=== PATIENT | female | born 1945 | race Hispanic/Latino ===

== ENCOUNTER 2018-05-05 15:20 | Inpatient (IN) | payer MEDICARE ==
[2018-05-05 15:21] VITALS: BMI 16.5
[2018-05-05] MEDS ORDERED: Sodium Chloride 0.9% 500 ML IV ONE ×2 (16:24→17:56)
[2018-05-05 16:40] LABS: BASO % 0.3 % (0.0-2.0); HEMOGLOBIN 7.7 g/dL (11.0-16.0); LYMPH # 0.4 K/uL (1.0-4.3); LYMPH % 2.8 % (20.0-40.0); MEAN CELL VOLUME 102.5 fL (81.0-99.0); MEAN CORPUSCULAR HEMOGLOBIN 32.8 pg (27.0-31.0); MEAN PLATELET VOLUME 8.8 fL (7.2-11.7); MONO # 0.6 K/uL (0.0-0.8); MONO % 3.9 % (0.0-10.0); NEUT # 14.8 K/uL (1.8-7.0); NRBC % 0.1 % (0.0-2.0); PLATELET COUNT 115 K/uL (130-400); RBC 2.35 Mil/uL (3.80-5.20); RED CELL DISTRIBUTION WIDTH 15.9 % (11.5-14.5)
[2018-05-05 16:50] LABS: INR 1.6
[2018-05-05 17:01] LABS: ALB/GLOB RATIO 1.2 (1.0-2.1); ALBUMIN 3.5 g/dL (3.5-5.0); CALCIUM 8.5 mg/dl (8.6-10.4)
[2018-05-05 17:13] LABS: CK-MB 9.59 ng/mL (0.0-3.38); TROPONIN I 0.013 ng/mL (0.00-0.120)
[2018-05-05] MEDS ORDERED: Sodium Chloride 0.9% 1,000 ML ONE (17:16)
--- NOTE | 2018-05-05 17:18 | C.PDOC ---
History Of Present Illness 72yo female with history of metastatic lung cancer (with mets to her brain), currently on chemotherapy, sent to ER by her oncologist Dr. Rizo for evaluation of generalized weakness for the last several days. Patient's outpatient bloodwork showed hemoglobin on 7.7; patient states she has had 2 prior blood transfusions. She reports mild shortness of breath but denies any abdominal pain, chest pain, nausea, vomiting, diarrhea, fever. PMD: Caryn Costello S Time Seen by Provider: 05/05/18 15:55 Chief Complaint (Nursing): Medical Clearance History Per: Patient History/Exam Limitations: no limitations Current Symptoms Are (Timing): Still Present Severity: Moderate Additional History Per: Patient Past Medical History Reviewed: Historical Data, Nursing Documentation, Vital Signs Vital Signs: Last Vital Signs Temp 97.4 F L 05/09/18 15:31 Pulse 110 H 05/09/18 15:31 Resp 20 05/09/18 15:31 BP 100/66 05/09/18 15:31 Pulse Ox 99 05/09/18 15:31 - Medical History PMH: Anxiety, Arthritis, Depression, Fractures (HAND NO SURGERY AGE 22), Hypercholesterolemia, Hypothyroidism, Osteoporosis, Pneumonia (A LONG TIME AGO) Surgical History: No Surg Hx - [facility] Procedures CYSTOSCOPY NEC (02/15/14) ENDOSC POLYPECTOMY OF LG INTEST (05/24/14) ESOPHAGOGASTRODUODENOSCOPY [EGD] W/CLOSED BIOPSY (05/24/14) GYNECOLOGIC EXAMINATION (02/15/14) RETROGRADE PYELOGRAM (02/15/14) TU DESTRUC BLADD LES NEC (02/15/14) Family History: States: No Known Family Hx - Social History Hx Tobacco Use: Yes Hx Alcohol Use: No Hx Substance Use: No - Immunization History Hx Tetanus Toxoid Vaccination: No Hx Influenza Vaccination: No Hx Pneumococcal Vaccination: No Review Of Systems Constitutional: Positive for: Weakness. Negative for: Fever, Chills Cardiovascular: Negative for: Chest Pain, Palpitations Respiratory: Positive for: Shortness of Breath. Negative for: Cough Gastrointestinal: Negative for: Nausea, Vomiting, Abdominal Pain Skin: Negative for: Rash Physical Exam - Physical Exam Appears: Non-toxic, Chronically Ill, Other (fatigued appearing ) Skin: Warm, Dry, Pale Head: Normacephalic Eye(s): bilateral: Normal Inspection Oral Mucosa: Moist Neck: Supple Chest: Other (portacath noted to right upper chest) Cardiovascular: Rhythm Regular Respiratory: Normal Breath Sounds, No Rales, No Rhonchi, No Wheezing Gastrointestinal/Abdominal: Soft, Tenderness (mild right sided periumbilical abdominal tenderness), No Mass, No Guarding, No Rebound Rectal: Rectal Tone (Normal), No Blood Streaked Stool, Hemorrhoids (small external hemorrhoids), No Mass, No Tenderness Back: Normal Inspection Extremity: Normal ROM, No Deformity Neurological/Psych: Oriented x3 ED Course And Treatment - Laboratory Results Result Diagrams: 05/09/18 07:48 05/09/18 07:48 ECG: Interpreted By Me, Viewed By Me (NSR 87 bpm, normal axis, Q wave aVL, V2, no acute ST/T wave changes) O2 Sat by Pulse Oximetry: 100 (RA) Pulse Ox Interpretation: Normal - Radiology CXR: Interpreted by Me, Viewed By Me CXR Interpretation: Yes: No Acute Disease, Other (left sided lung mass, no infiltrates/effusions) - CT Scan/US RUQ US Other Rad Studies (CT/US): Read By Radiologist, Radiology Report Reviewed CT/US Interpretation: This report is currently processing and HAS NOT BEEN OFFICIALLY SIGNED BY THE PHYSICIAN - ESTIMATED TIME OF APPROVAL IS 05/05/2018 18 :57. HISTORY: RUQ PAIN, ELEVATED LIVER ENZYMES, COLON CA. COMPARISON: Correlation made with MRI of the abdomen 09/21/2014 as well as prior CT scan of the abdomen and pelvis dated 07/26/2014. The. TECHNIQUE: Sonographic evaluation of the right upper quadrant of the abdomen. FINDINGS: LIVER: . The liver is mildly liver is borderline enlarged measuring approximately 18.2 cm in length. Liver demonstrates nodular contour and increased echotexture. There are multiple hepatic masses present, with the largest in the right lobe measuring approximately. 9.9 cm. Midline mass measures approximately 3.9 cm in greatest dimension. Recommend followup CT scan of the abdomen and pelvis to assess for metastasis given the patient's history of colon carcinoma. . GALLBLADDER: Gallbladder is physiologically distended. No evidence of intraluminal gallbladder calculi. . No evidence of sonographic [place] sign of Radiology connects. COMMON BILE DUCT: Common bile duct is mildly dilated measuring 1.1 cm. Mm. No stones. No dilatation. PANCREAS: Pancreas not visualized due to body habitus and bowel gas. RIGHT KIDNEY: Measures 9.1 x 4.0 x 5.4 cm cm in length. Normal echogenicity. No calculus, mass, or hydronephrosis. AORTA: No aneurysmal dilatation. IVC: Unremarkable. OTHER FINDINGS: None . IMPRESSION: There are at least 2 heterogeneous masses in the mid liver likely representing metastatic disease. Recommend followup CT scan of the abdomen pelvis. Note that these findings were discussed with lines are 6:51 p.m. with written down and read back verification. Progress Note: Blood work, UA, CXR ordered and reviewed. Patient given IV NS bolus, PO Perocet. Hgb 7.7, blood transfusion recommended by Dr. Ruby - ordered and given. Blood work also showed elevated liver enzymes - in light of metastatic lung CA history, US of RUQ prdered to eval for possible liver mets. - Physician Consult Information Physician Contacted: Ayan Eric Outcome Of Conversation: Discussed patient with hospitalist, agrees with admission for symptomatic anemia, generalized weakness, dyspnea, elevated LFTs, metastatic lung cancer. Disposition - Disposition Disposition: HOSPITALIZED Disposition Time: 18:07 Condition: STABLE - Clinical Impression Clinical Impression: Symptomatic anemia, Generalized weakness, LFTs abnormal, Metastatic lung carcinoma, Dyspnea - Scribe Statement The provider has reviewed the documentation as recorded by the Scribe (Ambar Caruso) Provider Attestation: All medical record entries made by the Scribe were at my direction and personally dictated by me. I have reviewed the chart and agree that the record accurately reflects my personal performance of the history, physical exam, medical decision making, and the department course for this patient. I have also personally directed, reviewed, and agree with the discharge instructions and disposition. Decision To Admit - Pt Status Changed To: Hospital Disposition Of: Inpatient - Admit Certification Admit to Inpatient:: After my assessment, the patient will require hospitalization for at least two midnights. This is because of the severity of symptoms shown, intensity of services needed, and/or the medical risk in this patient being treated as an outpatient. - InPatient: Physician Admission Certification: I certify that this patient requires 2 or more midnights of care for the following reason:: see notes - . Bed Request Type: Regular Admitting Physician: Ayan Eric Patient Diagnosis: Symptomatic anemia, Generalized weakness, LFTs abnormal, Metastatic lung carcinoma, Dyspnea
[2018-05-05] MEDS ORDERED: Oxycodone/Acetaminophen 5/325 mg Tab PO STA (17:57)
[2018-05-05 18:10] LABS: BANDS 2 % (0-2); LYMPHOCYTE 3 % (20-40); MONOCYTE 3 % (0-10); NEUTROPHIL 92 % (50-75); NUCLEATED RED BLOOD CELL 1 % (0-0); TOTAL CELLS COUNTED 100
[2018-05-05 18:11] LABS: PLATELET ESTIMATE SLIGHTLY DECREASED (NORMAL)
[2018-05-05] MEDS ORDERED: Oxycodone/Acetaminophen 5/325 mg Tab ONE (18:34)
[2018-05-05] MEDS ORDERED: oxyCODONE 10 mg Immediate Release Tab PO PRN (18:50)
--- NOTE | 2018-05-05 18:52 | US ---
HISTORY: RUQ PAIN, ELEVATED LIVER ENZYMES, COLON CA COMPARISON: Correlation made with MRI of the abdomen 09/21/2014 as well as prior CT scan of the abdomen and pelvis dated 07/26/2014. The TECHNIQUE: Sonographic evaluation of the right upper quadrant of the abdomen. FINDINGS: LIVER: . The liver is mildly liver is borderline enlarged measuring approximately 18.2 cm in length. Liver demonstrates nodular contour and increased echotexture. There are multiple hepatic masses present, with the largest in the right lobe measuring approximately. 9.9 cm. Midline mass measures approximately 3.9 cm in greatest dimension. Recommend followup CT scan of the abdomen and pelvis to assess for metastasis given the patient's history of colon carcinoma. GALLBLADDER: Gallbladder is physiologically distended. No evidence of intraluminal gallbladder calculi. . No evidence of sonographic Cedillo sign of Radiology connects COMMON BILE DUCT: Common bile duct is mildly dilated measuring 1.1 cm. Mm. No stones. No dilatation. PANCREAS: Pancreas not visualized due to body habitus and bowel gas RIGHT KIDNEY: Measures 9.1 x 4.0 x 5.4 cm cm in length. Normal echogenicity. No calculus, mass, or hydronephrosis. AORTA: No aneurysmal dilatation. IVC: Unremarkable. OTHER FINDINGS: None . IMPRESSION: There are at least 2 heterogeneous masses in the mid liver likely representing metastatic disease. Recommend followup CT scan of the abdomen pelvis. Note that these findings were discussed with lines are 6:51 p.m. with written down and read back verification.
[2018-05-05] MEDS ORDERED: HYDROmorphone 1 mg/ml ISec IVP PRN (19:12)
[2018-05-05] MEDS: Lactated Ringer's 1,000 ML IV SCH (19:16)
--- NOTE | 2018-05-05 19:30 | CP.PCM.HP ---
History of Present Illness - History of Present Illness History of Present Illness: This is 72 years old female with history of metastatic lung cancer,anxiety, depression and hypothyroidism was sent by her oncologist Dr michaels for severe anemia symptomatic anemia. 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 Patient was weak and not eating and not doing well last few weeks. patient 's is having hard time in taking care of her at home. Patient wants to continue treatment and not want palliative care. Her leukocytosis is likely due to Decardron she was taking. Patient denies fever,no nausea,no vomiting,no diarrhea. patient has right hypochondria pain last 3 weeks. She states that her pain is due to liver mass and her right lung cancer. She had Radiation for brain mets and s/p chemo. She completed her radiation about two weeks ago PMH -Metatatic lung cancer Anxiety, Arthritis, Depression, Fractures (HAND NO SURGERY AGE 22), Hypercholesterolemia, Hypothyroidism, Osteoporosis, Pneumonia Social history-Former smoker,denies drug and alcohol use Allergies Penicillin and other antibiotics she doesn't remember Present on Admission - Present on Admission Any Indicators Present on Admission: No History of DVT/PE: No History of Uncontrolled Diabetes: No Urinary Catheter: No Decubitus Ulcer Present: No Review of Systems - Constitutional Constitutional: Anorexia, Weight Loss. absent: Chills, Fever, Malaise - EENT Eyes: absent: Change in Vision Nose/Mouth/Throat: absent: Nasal Congestion - Breasts Breasts: absent: Skin Changes - Cardiovascular Cardiovascular: absent: Chest Pain, Edema - Respiratory Respiratory: Dyspnea on Exertion. absent: Cough, Dyspnea, Chest Congestion - Gastrointestinal Gastrointestinal: Abdominal Pain. absent: Cramping, Diarrhea, Dysphagia, Early Satiety, Melena, Vomiting - Genitourinary Genitourinary: absent: Change in Urinary Stream, Difficulty Urinating - Reproductive: Female Reproductive:Female: Post Menopausal - Musculoskeletal Musculoskeletal: Abnormal Gait, Back Pain, Muscle Weakness. absent: Neck Pain, Numbness, Radiating Pain into Limb - Neurological Neurological: Weakness. absent: Abnormal Hearing, Confusion, Focal Weakness, Frequent Falls, Headaches, Paresthesias, Radicular Pain, Sensory Deficit, Syncope, Vertigo - Psychiatric Psychiatric: Anxiety. absent: Confusion, Depression, Homicidal Ideation, Hopelessness, Irritability, Memory Loss, Mood Swings, Visual Hallucinations - Endocrine Endocrine: Fatigue - Hematologic/Lymphatic Hematologic: absent: Easy Bruising Past Patient History - Past Medical History & Family History Past Medical History?: Yes - Past Social History Smoking Status: Heavy Smoker > 10 Cigarettes Daily - CARDIAC Hx Hypercholesterolemia: Yes - PULMONARY Hx Pneumonia: Yes (A LONG TIME AGO) - NEUROLOGICAL Hx Neurological Disorder: No - HEENT Hx HEENT Problems: No - ENDOCRINE/METABOLIC Hx Hypothyroidism: Yes - HEMATOLOGICAL/ONCOLOGICAL Hx Blood Disorders: Yes Hx Cancer: Yes (LIVER) - INTEGUMENTARY Hx Dermatological Problems: No - MUSCULOSKELETAL/RHEUMATOLOGICAL Hx Arthritis: Yes Hx Fractures: Yes (HAND NO SURGERY AGE 22) Hx Osteoporosis: Yes - GASTROINTESTINAL Hx Gastrointestinal Disorders: No - GENITOURINARY/GYNECOLOGICAL Hx Genitourinary Disorders: Yes Hx Urinary Tract Infection: Yes (HX UTI) - PSYCHIATRIC Hx Anxiety: Yes Hx Depression: Yes Hx Substance Use: No - SURGICAL HISTORY Hx Surgeries: Yes Hx Hysterectomy: Yes Hx Thyroidectomy: Yes (PARTIAL THYROIDECTOMY) - ANESTHESIA Hx Anesthesia: Yes Hx Anesthesia Reactions: No Hx Malignant Hyperthermia: No Meds Allergies/Adverse Reactions: Allergies Allergy/AdvReac Type Severity Reaction Status Date / Time adhesive tape Allergy Severe RASH Verified 05/05/18 15:32 lidocaine Allergy Severe RASH Verified 05/05/18 15:32 nitrofurantoin Allergy Severe SHORTNESS Verified 05/05/18 15:32 [From Macrobid] OF BREATH nitrofurantoin Allergy Severe SHORTNESS Verified 05/05/18 15:32 macrocrystalline OF BREATH [From Macrobid] ciprofloxacin [From Cipro] AdvReac Severe VOMITING Verified 05/05/18 15:32 ciprofloxacin HCl AdvReac Severe VOMITING Verified 05/05/18 15:32 [From Cipro] Penicillins AdvReac Severe VOMITING Verified 05/05/18 15:32 Sulfa (Sulfonamide AdvReac Severe VOMITING Verified 05/05/18 15:32 Antibiotics) Physical Exam - Constitutional Appears: No Acute Distress, Cachectic - Head Exam Head Exam: NORMAL INSPECTION - Eye Exam Eye Exam: Normal appearance - ENT Exam ENT Exam: Mucous Membranes Moist - Neck Exam Neck exam: Positive for: Full Rom - Respiratory Exam Respiratory Exam: Clear to Auscultation Bilateral, NORMAL BREATHING PATTERN - Cardiovascular Exam Cardiovascular Exam: REGULAR RHYTHM - GI/Abdominal Exam GI & Abdominal Exam: Normal Bowel Sounds, Soft, Tenderness (right hypochondrial pain). absent: Distended, Guarding Results - Vital Signs Recent Vital Signs: Last Vital Signs Temp 98 F 05/05/18 18:27 Pulse 90 05/05/18 18:27 Resp 98 H 05/05/18 19:00 BP 123/73 05/05/18 19:00 Pulse Ox 98 05/05/18 19:00 - Labs Result Diagrams: 05/09/18 07:48 05/09/18 07:48 Labs: Laboratory Results - last 24 hr 05/05/18 05/05/18 05/05/18 16:35 16:35 16:35 WBC 16.0 H D RBC 2.35 L Hgb 7.7 L D Hct 24.1 L MCV 102.5 H D MCH 32.8 H MCHC 32.0 L RDW 15.9 H Plt Count 115 L D MPV 8.8 Neut % (Auto) 93.0 H Lymph % (Auto) 2.8 L [place] % (Auto) 3.9 Eos % (Auto) 0.0 Baso % (Auto) 0.3 Neut # (Auto) 14.8 H Lymph # (Auto) 0.4 L [place] # (Auto) 0.6 Eos # (Auto) 0.0 Baso # (Auto) 0.0 Neutrophils % (Manual) 92 H Band Neutrophils % 2 Lymphocytes % (Manual) 3 L Monocytes % (Manual) 3 Nucleated RBC % 1 H Platelet Estimate Slightly decreased L PT 17.0 H INR 1.6 APTT 25 Sodium 136 Potassium 4.4 Chloride 100 Carbon Dioxide 19 L Anion Gap 21 H BUN 48 H Creatinine 2.3 H Est GFR ( Amer) 25 Est GFR (Non-Af Amer) 21 Random Glucose 91 Calcium 8.5 L Total Bilirubin 0.9 AST 183 H ALT 152 H D Alkaline Phosphatase 456 H Total Creatine Kinase 162 H CK-MB (Mass) 9.59 H Troponin I 0.0130 Total Protein 6.5 Albumin 3.5 D Globulin 3.0 Albumin/Globulin Ratio 1.2 Stool Occult Blood Blood Type Antibody Screen 05/05/18 05/05/18 16:35 17:49 WBC RBC Hgb Hct MCV MCH MCHC RDW Plt Count MPV Neut % (Auto) Lymph % (Auto) [place] % (Auto) Eos % (Auto) Baso % (Auto) Neut # (Auto) Lymph # (Auto) [place] # (Auto) Eos # (Auto) Baso # (Auto) Neutrophils % (Manual) Band Neutrophils % Lymphocytes % (Manual) Monocytes % (Manual) Nucleated RBC % Platelet Estimate PT INR APTT Sodium Potassium Chloride Carbon Dioxide Anion Gap BUN Creatinine Est GFR ( Amer) Est GFR (Non-Af Amer) Random Glucose Calcium Total Bilirubin AST ALT Alkaline Phosphatase Total Creatine Kinase CK-MB (Mass) Troponin I Total Protein Albumin Globulin Albumin/Globulin Ratio Stool Occult Blood Negative Blood Type O NEGATIVE Antibody Screen Negative Assessment & Plan - Assessment and Plan (Free Text) Assessment: 72 years old female with metastatic lung cancer brought in for symptomatic anemia. has mets to brain,liver and bones. s/p chemo and brain radiation treatment. She wants full treatment including resuscitation if needed. patient is weak and poor intake. She is anemic HB 7.7,She has creatinine 2.3 and high LFT. As per Dr Michaels her creatinine and LFT were normal Plan: 1.Symptomatic anemia- transfuse PRBC stool ob negative-no GI bleeding likely due to ca with mets 2.Acute renal failure As per pt she has poor appetite and not able to drink start zofran IV Fluids monitor creatinine If no improvement we will get CT abdomen to r/o obstruction 3.Elevated LFT folloe US 4.Lung ca with mets Poor prognosis d/w Patient's oncologist-no plan for further treatment Patient refuses hospice care ' full code 5.Anxiety and pain xanax and pain mets 6.Leukocytosis No signs of infection,do UA May be due to dexamethasone she was getting d/w oncologist we will not start on antibiotics now 7.DVT and GI prophylaxis Attending/Attestation - Attestation I have personally seen and examined this patient.: Yes I have fully participated in the care of the patient.: Yes I have reviewed all pertinent clinical information: Yes Notes (Text): This is 72 years old female with history of metastatic lung ca came for symptomatic anemia. Discussed with her oncologist Dr Michaels Patient has extensive mets and she was not doing good at home.Poor appetite, weakness and period of confusion.Her LFT and creatinine were normal at her office.Her prognosis is not good. No plan for further treatment. On examination frail female c/o pain and weakness. On admission she wass not interested inhospice care and wants to get treatment including resuscitation. we will follow up discussed with the resident and I agree with the documentation of the assessment and the plan.
[2018-05-05] MEDS ORDERED: oxyCODONE 5 mg Immediate Release Tab ONE (20:03)
[2018-05-05] MEDS: oxyCODONE 10 mg Immediate Release Tab PO PRN (20:09)
[2018-05-06] MEDS: Lactated Ringer's 1,000 ML IV SCH ×4 (02:00→23:55)
[2018-05-06] MEDS: Levothyroxine 25 MCG TAB PO SCH (05:30)
[2018-05-06 06:35] LABS: BASO # 0.1 K/uL (0.0-0.2); BASO % 0.4 % (0.0-2.0); EOS % 0.1 % (0.0-4.0); HEMOGLOBIN 10.8 g/dL (11.0-16.0); LYMPH # 0.6 K/uL (1.0-4.3); LYMPH % 3.4 % (20.0-40.0); MEAN CELL VOLUME 94.2 fL (81.0-99.0); MEAN CORPUSCULAR HEMOGLOBIN 31.8 pg (27.0-31.0); MEAN CORPUSCULAR HGB CONC 33.8 g/dL (33.0-37.0); MONO % 5.7 % (0.0-10.0); NEUT # 15.9 K/uL (1.8-7.0); NEUT % 90.4 % (50.0-75.0); NRBC % 0.2 % (0.0-2.0); PLATELET COUNT 89 K/uL (130-400); RBC 3.39 Mil/uL (3.80-5.20); RED CELL DISTRIBUTION WIDTH 18.8 % (11.5-14.5); WHITE BLOOD COUNT 17.6 K/uL (4.8-10.8)
[2018-05-06 06:46] LABS: ALB/GLOB RATIO 1.2 (1.0-2.1); ALBUMIN 3.1 g/dL (3.5-5.0); CALCIUM 7.5 mg/dl (8.6-10.4)
[2018-05-06 08:17] LABS: BANDS 7 % (0-2); MYELOCYTE 2 % (0-0); NUCLEATED RED BLOOD CELL 1 % (0-0); TOTAL CELLS COUNTED 100
[2018-05-06 08:18] LABS: ANISOCYTOSIS MODERATE; LYMPHOCYTE 3 % (20-40); MONOCYTE 3 % (0-10); NEUTROPHIL 85 % (50-75); PLATELET ESTIMATE DECREASED (NORMAL); POIKILOCYTOSIS SLIGHT
[2018-05-06 08:19] LABS: LARGE PLATELETS PRESENT; OVALOCYTES SLIGHT
--- NOTE | 2018-05-06 08:25 | RAD ---
Chest x-ray single frontal view History: Weakness. Comparison: None available. Findings: 3.9 centimeter rounded pulmonary mass seen within the left mid lung zone concerning for neoplasm. Clinical correlation. Additional rounded 1.6 centimeter radiopaque mass seen projecting over the medial aspect of the left lower lobe which may also represent a mass. Hyperinflation suggestive for COPD and or emphysematous changes. Right chest wall port with tip extending to the cavoatrial junction. Calcification at aortic knob. Impression: 3.9 centimeter rounded pulmonary mass seen within the left mid lung zone concerning for neoplasm. Clinical correlation. Additional rounded 1.6 centimeter radiopaque mass seen projecting over the medial aspect of the left lower lobe which may also represent a neoplasm. Correlation with chest CT would be helpful if clinically indicated.
[2018-05-06] MEDS ORDERED: Enoxaparin 40 mg Syringe SC SCH (10:00)
[2018-05-06] MEDS: Pantoprazole 40 mg EC Tab PO SCH (10:58)
[2018-05-06] MEDS: HYDROmorphone 0.5 mg/0.5 ml ISec IVP PRN ×2 (11:18→18:07)
--- NOTE | 2018-05-06 12:03 | CP.PCM.CON ---
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 Past Patient History - Past Medical History & Family History Past Medical History?: Yes - Past Social History Smoking Status: Heavy Smoker > 10 Cigarettes Daily - CARDIAC Hx Hypercholesterolemia: Yes - PULMONARY Hx Lung Cancer: Yes Hx Pneumonia: Yes (A LONG TIME AGO) - NEUROLOGICAL Hx Neurological Disorder: No - HEENT Hx HEENT Problems: No - ENDOCRINE/METABOLIC Hx Hypothyroidism: Yes - HEMATOLOGICAL/ONCOLOGICAL Hx Blood Disorders: Yes Hx Cancer: Yes (LIVER) Hx Metastesis: Yes - INTEGUMENTARY Hx Dermatological Problems: No - MUSCULOSKELETAL/RHEUMATOLOGICAL Hx Arthritis: Yes Hx Falls: No Hx Fractures: Yes (HAND NO SURGERY AGE 22) Hx Osteoporosis: Yes - GASTROINTESTINAL Hx Gastrointestinal Disorders: No - GENITOURINARY/GYNECOLOGICAL Hx Genitourinary Disorders: Yes Hx Urinary Tract Infection: Yes (HX UTI) - PSYCHIATRIC Hx Anxiety: Yes Hx Depression: Yes Hx Substance Use: No - SURGICAL HISTORY Hx Surgeries: Yes Hx Hysterectomy: Yes Hx Thyroidectomy: Yes (PARTIAL THYROIDECTOMY) - ANESTHESIA Hx Anesthesia: Yes Hx Anesthesia Reactions: No Hx Malignant Hyperthermia: No Has any member of the family had a problem w/ anesthesia?: No Meds Allergies/Adverse Reactions: Allergies Allergy/AdvReac Type Severity Reaction Status Date / Time adhesive tape Allergy Severe RASH Verified 05/05/18 15:32 lidocaine Allergy Severe RASH Verified 05/05/18 15:32 nitrofurantoin Allergy Severe SHORTNESS Verified 05/05/18 15:32 [From Macrobid] OF BREATH nitrofurantoin Allergy Severe SHORTNESS Verified 05/05/18 15:32 macrocrystalline OF BREATH [From Macrobid] ciprofloxacin [From Cipro] AdvReac Severe VOMITING Verified 05/05/18 15:32 ciprofloxacin HCl AdvReac Severe VOMITING Verified 05/05/18 15:32 [From Cipro] Penicillins AdvReac Severe VOMITING Verified 05/05/18 15:32 Sulfa (Sulfonamide AdvReac Severe VOMITING Verified 05/05/18 15:32 Antibiotics) - Medications Medications: Current Medications Alprazolam (Xanax) 0.25 mg PO TID PRN PRN Reason: Anxiety Stop: 05/12/18 19:11 Last Admin: 05/05/18 20:09 Dose: 0.25 mg Amitriptyline HCl (Elavil) 150 mg PO HS [facility] Last Admin: 05/05/18 22:07 Dose: 150 mg Heparin Sodium (Porcine) (Heparin) 1,000 units SC Q12H [facility] Last Admin: 05/06/18 10:58 Dose: 1,000 units Hydromorphone HCl (Dilaudid) 1 mg IVP Q4H PRN PRN Reason: Pain, severe (8-10) Last Admin: 05/06/18 11:18 Dose: 1 mg Lactated Ringer's (Lactated Ringer's) 1,000 mls @ 100 mls/hr IV .Q10H [facility] Last Admin: 05/06/18 05:15 Dose: Not Given Levothyroxine Sodium (Synthroid) 25 mcg PO DAILY@0630 [facility] Last Admin: 05/06/18 05:30 Dose: 25 mcg Ondansetron HCl (Zofran Inj) 4 mg IVP Q4H PRN PRN Reason: Anxiety Oxycodone HCl (Oxycodone Immediate Release Tab) 10 mg PO Q6 PRN PRN Reason: Pain, moderate (4-7) Last Admin: 05/05/18 20:09 Dose: 10 mg Pantoprazole Sodium (Protonix Ec Tab) 40 mg PO DAILY [facility] Last Admin: 05/06/18 10:58 Dose: 40 mg Results - Vital Signs Recent Vital Signs: Last Vital Signs Temp 98.2 F 05/06/18 08:00 Pulse 104 H 05/06/18 08:00 Resp 20 05/06/18 08:00 BP 95/55 L 05/06/18 08:00 Pulse Ox 97 05/06/18 08:00 - Labs Result Diagrams: 05/06/18 04:00 05/06/18 06:24 Labs: Laboratory Results - last 24 hr 05/05/18 05/05/18 05/05/18 16:35 16:35 16:35 WBC 16.0 H D RBC 2.35 L Hgb 7.7 L D Hct 24.1 L MCV 102.5 H D MCH 32.8 H MCHC 32.0 L RDW 15.9 H Plt Count 115 L D MPV 8.8 Neut % (Auto) 93.0 H Lymph % (Auto) 2.8 L [place] % (Auto) 3.9 Eos % (Auto) 0.0 Baso % (Auto) 0.3 Neut # (Auto) 14.8 H Lymph # (Auto) 0.4 L [place] # (Auto) 0.6 Eos # (Auto) 0.0 Baso # (Auto) 0.0 Neutrophils % (Manual) 92 H Band Neutrophils % 2 Lymphocytes % (Manual) 3 L Monocytes % (Manual) 3 Myelocytes % Nucleated RBC % 1 H Platelet Estimate Slightly decreased L Large Platelets Poikilocytosis (manual Anisocytosis (manual) Ovalocytes PT 17.0 H INR 1.6 APTT 25 Sodium 136 Potassium 4.4 Chloride 100 Carbon Dioxide 19 L Anion Gap 21 H BUN 48 H Creatinine 2.3 H Est GFR ( Amer) 25 Est GFR (Non-Af Amer) 21 Random Glucose 91 Calcium 8.5 L Total Bilirubin 0.9 AST 183 H ALT 152 H D Alkaline Phosphatase 456 H Total Creatine Kinase 162 H CK-MB (Mass) 9.59 H Troponin I 0.0130 Total Protein 6.5 Albumin 3.5 D Globulin 3.0 Albumin/Globulin Ratio 1.2 Stool Occult Blood Blood Type Antibody Screen 05/05/18 05/05/18 05/06/18 16:35 17:49 04:00 WBC 17.6 H RBC 3.39 L Hgb 10.8 L D Hct 31.9 L MCV 94.2 D MCH 31.8 H MCHC 33.8 RDW 18.8 H Plt Count 89 L D MPV 9.0 Neut % (Auto) 90.4 H Lymph % (Auto) 3.4 L [place] % (Auto) 5.7 Eos % (Auto) 0.1 Baso % (Auto) 0.4 Neut # (Auto) 15.9 H Lymph # (Auto) 0.6 L [place] # (Auto) 1.0 H Eos # (Auto) 0.0 Baso # (Auto) 0.1 Neutrophils % (Manual) 85 H Band Neutrophils % 7 H Lymphocytes % (Manual) 3 L Monocytes % (Manual) 3 Myelocytes % 2 H Nucleated RBC % 1 H Platelet Estimate Decreased L Large Platelets Present Poikilocytosis (manual Slight Anisocytosis (manual) Moderate Ovalocytes Slight PT INR APTT Sodium Potassium Chloride Carbon Dioxide Anion Gap BUN Creatinine Est GFR ( Amer) Est GFR (Non-Af Amer) Random Glucose Calcium Total Bilirubin AST ALT Alkaline Phosphatase Total Creatine Kinase CK-MB (Mass) Troponin I Total Protein Albumin Globulin Albumin/Globulin Ratio Stool Occult Blood Negative Blood Type O NEGATIVE Antibody Screen Negative 05/06/18 06:24 WBC RBC Hgb Hct MCV MCH MCHC RDW Plt Count MPV Neut % (Auto) Lymph % (Auto) [place] % (Auto) Eos % (Auto) Baso % (Auto) Neut # (Auto) Lymph # (Auto) [place] # (Auto) Eos # (Auto) Baso # (Auto) Neutrophils % (Manual) Band Neutrophils % Lymphocytes % (Manual) Monocytes % (Manual) Myelocytes % Nucleated RBC % Platelet Estimate Large Platelets Poikilocytosis (manual Anisocytosis (manual) Ovalocytes PT INR APTT Sodium 139 Potassium 3.7 Chloride 105 Carbon Dioxide 23 Anion Gap 15 BUN 38 H Creatinine 1.6 H Est GFR ( Amer) 39 Est GFR (Non-Af Amer) 32 Random Glucose 91 Calcium 7.5 L Total Bilirubin 1.3 AST 177 H ALT 147 H Alkaline Phosphatase 850 H D Total Creatine Kinase CK-MB (Mass) Troponin I Total Protein 5.8 L Albumin 3.1 L Globulin 2.7 Albumin/Globulin Ratio 1.2 Stool Occult Blood Blood Type Antibody Screen Assessment & Plan (1) Adenocarcinoma of lung metastatic to liver Assessment and Plan: Advanced progressive metastatic adenocarcinoma of the lung to liver, lungs, brain, currently bedbound, weak, confused. Will discuss with and patient regarding palliative care Status: Acute
--- NOTE | 2018-05-06 13:50 | CP.PCM.PN ---
<López Snowden - Last Filed: 05/06/18 13:45> Subjective - Date & Time of Evaluation Date of Evaluation: 05/06/18 Time of Evaluation: 07:11 - Subjective Subjective: PGY1 Medicine Note for Dr. Eric Patient seen and examined at bedside. No acute events overnight. Patient reports weakness but states she is eating better. She complains of mild difficulty breathing but does not want anymore oxygen, stating that the nasal cannula is all perfect for her. She refused a breathing treatment or non- rebreather mask. She has no other complaints at this time. Denies fevers, chills , nausea, vomiting, diarrhea, constipations, chest pain, palpitations, headaches , numbness or tingling. Objective - Vital Signs/Intake and Output Vital Signs (last 24 hours): Temp Pulse Resp BP Pulse Ox 98.2 F 104 H 20 95/55 L 97 05/06/18 08:00 05/06/18 08:00 05/06/18 08:00 05/06/18 08:00 05/06/18 08:00 Intake and Output: 05/06/18 05/06/18 06:59 18:59 Intake Total 1925 Balance 1925 - Medications Medications: Current Medications Alprazolam (Xanax) 0.25 mg PO TID PRN PRN Reason: Anxiety Stop: 05/12/18 19:11 Last Admin: 05/05/18 20:09 Dose: 0.25 mg Amitriptyline HCl (Elavil) 150 mg PO HS [facility] Last Admin: 05/05/18 22:07 Dose: 150 mg Dexamethasone (Decadron Inj) 2 mg IV DAILY [facility] Heparin Sodium (Porcine) (Heparin) 1,000 units SC Q12H [facility] Last Admin: 05/06/18 10:58 Dose: 1,000 units Hydromorphone HCl (Dilaudid) 1 mg IVP Q4H PRN PRN Reason: Pain, severe (8-10) Last Admin: 05/06/18 11:18 Dose: 1 mg Lactated Ringer's (Lactated Ringer's) 1,000 mls @ 100 mls/hr IV .Q10H [facility] Last Admin: 05/06/18 05:15 Dose: Not Given Levothyroxine Sodium (Synthroid) 25 mcg PO DAILY@0630 [facility] Last Admin: 05/06/18 05:30 Dose: 25 mcg Ondansetron HCl (Zofran Inj) 4 mg IVP Q4H PRN PRN Reason: Anxiety Oxycodone HCl (Oxycodone Immediate Release Tab) 10 mg PO Q6 PRN PRN Reason: Pain, moderate (4-7) Last Admin: 05/05/18 20:09 Dose: 10 mg Pantoprazole Sodium (Protonix Ec Tab) 40 mg PO DAILY [facility] Last Admin: 05/06/18 10:58 Dose: 40 mg - Labs Labs: 05/06/18 04:00 05/06/18 06:24 PT 17.0 SECONDS (9.7-12.2) H 05/05/18 16:35 INR 1.6 05/05/18 16:35 APTT 25 SECONDS (21-34) 05/05/18 16:35 - Constitutional Appears: Cachectic, Chronically Ill - Head Exam Head Exam: ATRAUMATIC - Eye Exam Eye Exam: Normal appearance - ENT Exam ENT Exam: Mucous Membranes Moist - Neck Exam Neck Exam: absent: Lymphadenopathy, Tenderness - Respiratory Exam Respiratory Exam: Clear to Ausculation Bilateral, NORMAL BREATHING PATTERN. absent: Accessory Muscle Use, Rales, Rhonchi, Wheezes, Respiratory Distress Additional comments: port on right of chest. - Cardiovascular Exam Cardiovascular Exam: REGULAR RHYTHM, +S1 - GI/Abdominal Exam GI & Abdominal Exam: Soft. absent: Distended, Firm, Guarding, Rigid, Tenderness - Extremities Exam Extremities Exam: absent: Calf Tenderness, Pedal Edema - Neurological Exam Neurological Exam: Alert, Awake - Psychiatric Exam Psychiatric exam: Anxious - Skin Skin Exam: Dry, Warm Assessment and Plan - Assessment and Plan (Free Text) Assessment: 72 years old female with metastatic lung cancer brought in for symptomatic anemia. has mets to brain,liver and bones. s/p chemo and brain radiation treatment. She wants full treatment including resuscitation if needed. patient is weak and poor intake. Upon admission she was found to be anemic with a Hgb of 7.7. She had a creatinine 2.3 and high LFT. As per Dr Rizo her creatinine and LFT were previously normal. Plan: Symptomatic anemia Upon admission, Hgb 7.7 on 05/05/18 * transfused 2 units of PRBC on 05/05/18 Hgb 10.8 on 05/06/18 * appropriate rise in Hgb stool ob negative-no GI bleeding likely due to ca with mets continue to monitor Acute renal failure As per pt she has poor appetite and not able to drink Zofran 4mg IVP q4h prn LR @100mL/hr monitor creatinine Lung ca with mets Hem/Onc consulted, Dr. Rizo d/w Patient's oncologist, Dr. Rizo - no plan for further treatment Poor prognosis Patient refuses hospice care Full code Hexamethason 2mg IV daily Elevated LFTs Abdominal US - There are at least 2 heterogeneous masses in the mid liver likely representing metastatic disease. Recommend followup CT scan of the abdomen pelvis. Note that these findings were discussed with lines are 6: 51 p.m. with written down and read back verification Anxiety and pain Xanax 0.25mg PO TID prn Amitriptyline 150mg PO HS Dilaudid 1mg IVP q4h prn Oxycodone 10mg PO q6h prn Leukocytosis No signs of infection May be due to dexamethasone she was getting d/w oncologist we will not start on antibiotics now Prophylactic Care DVT - Heparin 1,000units SC q12h - per Dr. Rizo GI - Protonix 40mg PO daily Case discussed with Dr. Hernesto Dawn Isi PGY1 <Ayan Eric - Last Filed: 05/11/18 08:23> Objective - Vital Signs/Intake and Output Vital Signs (last 24 hours): Temp Pulse Resp BP Pulse Ox 97.8 F 96 H 20 95/60 L 96 05/11/18 00:00 05/11/18 06:39 05/11/18 06:39 05/11/18 06:39 05/11/18 06:39 Intake and Output: 05/11/18 05/11/18 06:59 18:59 Intake Total 1715 Output Total 1 Balance 1714 - Medications Medications: Current Medications Albuterol/Ipratropium (Duoneb 3 Mg/0.5 Mg (3 Ml) Ud) 3 ml INH RQ6 PRN PRN Reason: Shortness of Breath Stop: 05/13/18 18:12 Alprazolam (Xanax) 0.25 mg PO TID PRN PRN Reason: Anxiety Stop: 05/12/18 19:11 Last Admin: 05/05/18 20:09 Dose: 0.25 mg Amitriptyline HCl (Elavil) 150 mg PO HS [facility] Last Admin: 05/10/18 21:44 Dose: Not Given Dexamethasone (Decadron Inj) 2 mg IV DAILY [facility] Last Admin: 05/10/18 10:45 Dose: 2 mg Docusate Sodium (Colace) 100 mg PO BID [facility] Last Admin: 05/10/18 18:00 Dose: Not Given Hydromorphone HCl (Dilaudid) 2 mg IVP Q2H PRN PRN Reason: Pain, severe (8-10) Last Admin: 05/11/18 03:30 Dose: 2 mg Lactated Ringer's (Lactated Ringer's) 1,000 mls @ 100 mls/hr IV .Q10H [facility] Last Admin: 05/11/18 05:15 Dose: Not Given Levothyroxine Sodium (Synthroid) 25 mcg PO DAILY@0630 [facility] Last Admin: 05/11/18 05:55 Dose: 25 mcg Ondansetron HCl (Zofran Inj) 4 mg IVP Q4H PRN PRN Reason: Anxiety Oxycodone HCl (Oxycodone Immediate Release Tab) 10 mg PO Q6 PRN PRN Reason: Pain, moderate (4-7) Last Admin: 05/11/18 00:40 Dose: 10 mg Pantoprazole Sodium (Protonix Inj) 40 mg IVP DAILY [facility] Last Admin: 05/10/18 10:46 Dose: 40 mg Polyethylene Glycol (Miralax) 17 gm PO HS PRN PRN Reason: Constipation Fluticasone/Salmeterol (Advair Diskus 250/50) 1 puff INH RQ12 [facility] Last Admin: 05/10/18 19:17 Dose: Not Given - Labs Labs: 05/09/18 07:48 05/09/18 07:48 PT 17.0 SECONDS (9.7-12.2) H 05/05/18 16:35 INR 1.6 05/05/18 16:35 APTT 25 SECONDS (21-34) 05/05/18 16:35 Attending/Attestation - Attestation I have personally seen and examined this patient.: Yes I have fully participated in the care of the patient.: Yes I have reviewed all pertinent clinical information, including history, physical exam and plan: Yes Notes (Text): Patient is awake and weak. period of confusion We will discuss with her about advance directives and possible in patient hospice care I agree with the resident's documentation of the assessment and the plan.
--- NOTE | 2018-05-06 18:04 | CP.PCM.CON ---
History of Present Illness - History of Present Illness History of Present Illness: chronically ill, denies pain, some sob at times poor historian, emaciated ex smoker with known Ca lung with diffuse mets, COPD Review of Systems - Review of Systems All systems: reviewed and no additional remarkable complaints except - Constitutional Constitutional: Weight Loss, Weakness - Respiratory Respiratory: Dyspnea - Gastrointestinal Gastrointestinal: Early Satiety Past Patient History - Past Medical History & Family History Past Medical History?: Yes - Past Social History Smoking Status: Heavy Smoker > 10 Cigarettes Daily - CARDIAC Hx Hypercholesterolemia: Yes - PULMONARY Hx Lung Cancer: Yes Hx Pneumonia: Yes (A LONG TIME AGO) - NEUROLOGICAL Hx Neurological Disorder: No - HEENT Hx HEENT Problems: No - ENDOCRINE/METABOLIC Hx Hypothyroidism: Yes - HEMATOLOGICAL/ONCOLOGICAL Hx Blood Disorders: Yes Hx Cancer: Yes (LIVER) Hx Metastesis: Yes - INTEGUMENTARY Hx Dermatological Problems: No - MUSCULOSKELETAL/RHEUMATOLOGICAL Hx Arthritis: Yes Hx Falls: No Hx Fractures: Yes (HAND NO SURGERY AGE 22) Hx Osteoporosis: Yes - GASTROINTESTINAL Hx Gastrointestinal Disorders: No - GENITOURINARY/GYNECOLOGICAL Hx Genitourinary Disorders: Yes Hx Urinary Tract Infection: Yes (HX UTI) - PSYCHIATRIC Hx Anxiety: Yes Hx Depression: Yes Hx Substance Use: No - SURGICAL HISTORY Hx Surgeries: Yes Hx Hysterectomy: Yes Hx Thyroidectomy: Yes (PARTIAL THYROIDECTOMY) - ANESTHESIA Hx Anesthesia: Yes Hx Anesthesia Reactions: No Hx Malignant Hyperthermia: No Has any member of the family had a problem w/ anesthesia?: No Meds Allergies/Adverse Reactions: Allergies Allergy/AdvReac Type Severity Reaction Status Date / Time adhesive tape Allergy Severe RASH Verified 05/05/18 15:32 lidocaine Allergy Severe RASH Verified 05/05/18 15:32 nitrofurantoin Allergy Severe SHORTNESS Verified 05/05/18 15:32 [From Macrobid] OF BREATH nitrofurantoin Allergy Severe SHORTNESS Verified 05/05/18 15:32 macrocrystalline OF BREATH [From Macrobid] ciprofloxacin [From Cipro] AdvReac Severe VOMITING Verified 05/05/18 15:32 ciprofloxacin HCl AdvReac Severe VOMITING Verified 05/05/18 15:32 [From Cipro] Penicillins AdvReac Severe VOMITING Verified 05/05/18 15:32 Sulfa (Sulfonamide AdvReac Severe VOMITING Verified 05/05/18 15:32 Antibiotics) - Medications Medications: Current Medications Alprazolam (Xanax) 0.25 mg PO TID PRN PRN Reason: Anxiety Stop: 05/12/18 19:11 Last Admin: 05/05/18 20:09 Dose: 0.25 mg Amitriptyline HCl (Elavil) 150 mg PO HS [facility] Last Admin: 05/05/18 22:07 Dose: 150 mg Dexamethasone (Decadron Inj) 2 mg IV DAILY [facility] Heparin Sodium (Porcine) (Heparin) 1,000 units SC Q12H [facility] Last Admin: 05/06/18 10:58 Dose: 1,000 units Hydromorphone HCl (Dilaudid) 1 mg IVP Q4H PRN PRN Reason: Pain, severe (8-10) Last Admin: 05/06/18 11:18 Dose: 1 mg Lactated Ringer's (Lactated Ringer's) 1,000 mls @ 100 mls/hr IV .Q10H [facility] Last Admin: 05/06/18 14:36 Dose: 100 mls/hr Levothyroxine Sodium (Synthroid) 25 mcg PO DAILY@0630 [facility] Last Admin: 05/06/18 05:30 Dose: 25 mcg Ondansetron HCl (Zofran Inj) 4 mg IVP Q4H PRN PRN Reason: Anxiety Oxycodone HCl (Oxycodone Immediate Release Tab) 10 mg PO Q6 PRN PRN Reason: Pain, moderate (4-7) Last Admin: 05/05/18 20:09 Dose: 10 mg Pantoprazole Sodium (Protonix Ec Tab) 40 mg PO DAILY [facility] Last Admin: 05/06/18 10:58 Dose: 40 mg Polyethylene Glycol (Miralax) 17 gm PO HS PRN PRN Reason: Constipation Physical Exam - Constitutional Appears: Cachectic, Chronically Ill - Head Exam Head Exam: ATRAUMATIC, NORMOCEPHALIC - Eye Exam Eye Exam: Normal appearance - ENT Exam ENT Exam: Mucous Membranes Moist - Neck Exam Neck exam: Positive for: Normal Inspection - Respiratory Exam Respiratory Exam: Decreased Breath Sounds - Cardiovascular Exam Cardiovascular Exam: REGULAR RHYTHM, +S1, +S2 - GI/Abdominal Exam GI & Abdominal Exam: Normal Bowel Sounds - Rectal Exam Rectal Exam: Deferred - Neurological Exam Neurological exam: Alert, Oriented x3 - Psychiatric Exam Psychiatric exam: Flat Affect - Skin Skin Exam: Intact Results - Vital Signs Recent Vital Signs: Last Vital Signs Temp 97.3 F L 05/06/18 16:00 Pulse 103 H 05/06/18 16:00 Resp 20 05/06/18 16:00 BP 101/71 05/06/18 16:00 Pulse Ox 100 05/06/18 16:00 - Labs Result Diagrams: 05/06/18 04:00 05/06/18 06:24 Labs: Laboratory Results - last 24 hr 05/05/18 05/05/18 05/06/18 16:35 16:35 04:00 WBC 17.6 H RBC 3.39 L Hgb 10.8 L D Hct 31.9 L MCV 94.2 D MCH 31.8 H MCHC 33.8 RDW 18.8 H Plt Count 89 L D MPV 9.0 Neut % (Auto) 90.4 H Lymph % (Auto) 3.4 L [place] % (Auto) 5.7 Eos % (Auto) 0.1 Baso % (Auto) 0.4 Neut # (Auto) 15.9 H Lymph # (Auto) 0.6 L [place] # (Auto) 1.0 H Eos # (Auto) 0.0 Baso # (Auto) 0.1 Neutrophils % (Manual) 92 H 85 H Band Neutrophils % 2 7 H Lymphocytes % (Manual) 3 L 3 L Monocytes % (Manual) 3 3 Myelocytes % 2 H Nucleated RBC % 1 H 1 H Platelet Estimate Slightly decreased L Decreased L Large Platelets Present Poikilocytosis (manual Slight Anisocytosis (manual) Moderate Ovalocytes Slight Sodium Potassium Chloride Carbon Dioxide Anion Gap BUN Creatinine Est GFR ( Amer) Est GFR (Non-Af Amer) Random Glucose Calcium Total Bilirubin AST ALT Alkaline Phosphatase Total Protein Albumin Globulin Albumin/Globulin Ratio Blood Type O NEGATIVE Antibody Screen Negative 05/06/18 06:24 WBC RBC Hgb Hct MCV MCH MCHC RDW Plt Count MPV Neut % (Auto) Lymph % (Auto) [place] % (Auto) Eos % (Auto) Baso % (Auto) Neut # (Auto) Lymph # (Auto) [place] # (Auto) Eos # (Auto) Baso # (Auto) Neutrophils % (Manual) Band Neutrophils % Lymphocytes % (Manual) Monocytes % (Manual) Myelocytes % Nucleated RBC % Platelet Estimate Large Platelets Poikilocytosis (manual Anisocytosis (manual) Ovalocytes Sodium 139 Potassium 3.7 Chloride 105 Carbon Dioxide 23 Anion Gap 15 BUN 38 H Creatinine 1.6 H Est GFR ( Amer) 39 Est GFR (Non-Af Amer) 32 Random Glucose 91 Calcium 7.5 L Total Bilirubin 1.3 AST 177 H ALT 147 H Alkaline Phosphatase 850 H D Total Protein 5.8 L Albumin 3.1 L Globulin 2.7 Albumin/Globulin Ratio 1.2 Blood Type Antibody Screen Assessment & Plan (1) 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
[2018-05-06] MEDS ORDERED: Albuterol-Ipratrop 3 mg / 0.5 (3 ml) UD INH PRN (18:11)
[2018-05-06] MEDS ORDERED: POLYETHYLENE GLYCOL 3350 17 GM/Dose PACKET PO PRN (22:00)
[2018-05-07] MEDS: Lactated Ringer's 1,000 ML IV SCH ×4 (01:15→21:37)
[2018-05-07] MEDS: HYDROmorphone 0.5 mg/0.5 ml ISec IVP PRN ×2 (06:33→17:55)
[2018-05-07 06:46] LABS: BASO % 0.2 % (0.0-2.0); EOS % 0.1 % (0.0-4.0); HEMOGLOBIN 7.7 g/dL (11.0-16.0); LYMPH # 0.6 K/uL (1.0-4.3); MEAN CELL VOLUME 95.5 fL (81.0-99.0); MEAN CORPUSCULAR HEMOGLOBIN 32.1 pg (27.0-31.0); MEAN CORPUSCULAR HGB CONC 33.6 g/dL (33.0-37.0); MEAN PLATELET VOLUME 9.4 fL (7.2-11.7); MONO # 1.1 K/uL (0.0-0.8); MONO % 6.9 % (0.0-10.0); NEUT # 14.6 K/uL (1.8-7.0); NEUT % 88.8 % (50.0-75.0); NRBC % 0.4 % (0.0-2.0); PLATELET COUNT 68 K/uL (130-400); RBC 2.41 Mil/uL (3.80-5.20); RED CELL DISTRIBUTION WIDTH 19.2 % (11.5-14.5); WHITE BLOOD COUNT 16.4 K/uL (4.8-10.8)
[2018-05-07] MEDS: Levothyroxine 25 MCG TAB PO SCH (07:41)
[2018-05-07 07:50] LABS: ALB/GLOB RATIO 1.1 (1.0-2.1); ALBUMIN 2.6 g/dL (3.5-5.0); CALCIUM 7.1 mg/dl (8.6-10.4)
[2018-05-07 08:35] LABS: ANISOCYTOSIS MODERATE; BANDS 6 % (0-2); HYPOCHROMIC SLIGHT; LYMPHOCYTE 4 % (20-40); METAMYELOCYTE 1 % (0-0); MONOCYTE 8 % (0-10); NEUTROPHIL 81 % (50-75); PLATELET ESTIMATE DECREASED (NORMAL); TOTAL CELLS COUNTED 100
[2018-05-07] MEDS: Pantoprazole 40 mg EC Tab PO SCH (09:27)
[2018-05-07] MEDS: Dexamethasone 4 mg/1 ml IV SCH (09:28)
[2018-05-07] MEDS: Fluticasone-Salmeterol 250-50mcg Diskus INH SCH (09:34)
--- NOTE | 2018-05-07 11:20 | CP.PCM.PN ---
<López Snowden - Last Filed: 05/07/18 10:42> Subjective - Date & Time of Evaluation Date of Evaluation: 05/07/18 Time of Evaluation: 07:42 - Subjective Subjective: PGY1 Medicine Note for Dr. Reji Delvalle Patient seen and examined at bedside this morning. No acute events overnight. Patient is very lethargic complaining of fatigue today. Patient is very tired and very weak. Her breakfast is at her bedside with only a few bites taken. Patient has no other complaints at this time. Denies fevers, chills, nausea, vomiting, diarrhea, constipations, chest pain, palpitations, headaches, numbness or tingling. Objective - Vital Signs/Intake and Output Vital Signs (last 24 hours): Temp Pulse Resp BP Pulse Ox 98.4 F 103 H 20 101/69 99 05/07/18 08:00 05/07/18 08:00 05/07/18 08:00 05/07/18 08:00 05/07/18 08:00 Intake and Output: 05/07/18 05/07/18 06:59 18:59 Intake Total 1660 Balance 1660 - Medications Medications: Current Medications Albuterol/Ipratropium (Duoneb 3 Mg/0.5 Mg (3 Ml) Ud) 3 ml INH RQ6 PRN PRN Reason: Shortness of Breath Stop: 05/13/18 18:12 Alprazolam (Xanax) 0.25 mg PO TID PRN PRN Reason: Anxiety Stop: 05/12/18 19:11 Last Admin: 05/05/18 20:09 Dose: 0.25 mg Amitriptyline HCl (Elavil) 150 mg PO HS [facility] Last Admin: 05/06/18 21:25 Dose: 150 mg Dexamethasone (Decadron Inj) 2 mg IV DAILY [facility] Last Admin: 05/07/18 09:28 Dose: 2 mg Heparin Sodium (Porcine) (Heparin) 1,000 units SC Q12H [facility] Last Admin: 05/06/18 21:22 Dose: 1,000 units Hydromorphone HCl (Dilaudid) 1 mg IVP Q4H PRN PRN Reason: Pain, severe (8-10) Last Admin: 05/07/18 06:33 Dose: 1 mg Lactated Ringer's (Lactated Ringer's) 1,000 mls @ 100 mls/hr IV .Q10H [facility] Last Admin: 05/07/18 09:38 Dose: 100 mls/hr Levothyroxine Sodium (Synthroid) 25 mcg PO DAILY@0630 [facility] Last Admin: 05/07/18 07:41 Dose: 25 mcg Ondansetron HCl (Zofran Inj) 4 mg IVP Q4H PRN PRN Reason: Anxiety Oxycodone HCl (Oxycodone Immediate Release Tab) 10 mg PO Q6 PRN PRN Reason: Pain, moderate (4-7) Last Admin: 05/05/18 20:09 Dose: 10 mg Pantoprazole Sodium (Protonix Ec Tab) 40 mg PO DAILY [facility] Last Admin: 05/07/18 09:27 Dose: Not Given Polyethylene Glycol (Miralax) 17 gm PO HS PRN PRN Reason: Constipation Fluticasone/Salmeterol (Advair Diskus 250/50) 1 puff INH RQ12 [facility] Last Admin: 05/07/18 09:34 Dose: Not Given - Labs Labs: 05/07/18 06:36 05/07/18 06:36 PT 17.0 SECONDS (9.7-12.2) H 05/05/18 16:35 INR 1.6 05/05/18 16:35 APTT 25 SECONDS (21-34) 05/05/18 16:35 - Constitutional Appears: No Acute Distress, Cachectic, Chronically Ill - Head Exam Head Exam: ATRAUMATIC, NORMOCEPHALIC - Eye Exam Eye Exam: Normal appearance - ENT Exam ENT Exam: Mucous Membranes Moist - Respiratory Exam Respiratory Exam: Decreased Breath Sounds - Cardiovascular Exam Cardiovascular Exam: REGULAR RHYTHM, +S1, +S2 - GI/Abdominal Exam GI & Abdominal Exam: Soft. absent: Distended, Firm, Guarding, Rigid, Tenderness - Rectal Exam Rectal Exam: absent: Black Stool, Bloody Stool Additional comments: Stool occult positive, no hemorrhoids, no melena or gross blood noted, light brown stool seen on glove. - Extremities Exam Extremities Exam: absent: Calf Tenderness, Pedal Edema - Neurological Exam Neurological Exam: Alert, Awake - Psychiatric Exam Psychiatric exam: Flat Affect Additional comments: very lethargic. - Skin Skin Exam: Dry, Pallor Assessment and Plan - Assessment and Plan (Free Text) Assessment: 72 years old female with metastatic lung cancer brought in for symptomatic anemia. has mets to brain,liver and bones. s/p chemo and brain radiation treatment. She wants full treatment including resuscitation if needed. patient is weak and poor intake. Upon admission she was found to be anemic with a Hgb of 7.7. She had a creatinine 2.3 and high LFT. As per Dr Rizo her creatinine and LFT were previously normal. Plan: Symptomatic anemia Upon admission, Hgb 7.7 on 05/05/18 * transfused 2 units of PRBC on 05/05/18 Hgb dropped from 10.8 on 05/06/18 to 7.7 today * discussed with Dr. Rizo * Transfuse 2 units of pRBC on 05/07/18 * Stool Occult Positive (05/07/18) * Dr. Rizo will call to discuss declining condition of patient with and possible change in resuscitation status to DNR. Patient is currently a full code. likely due to ca with mets continue to monitor Acute renal failure As per pt she has poor appetite and not able to drink Zofran 4mg IVP q4h prn LR @100mL/hr monitor creatinine Lung ca with mets Hem/Onc consulted, Dr. Rizo d/w Patient's oncologist, Dr. Rizo - no plan for further treatment Poor prognosis Patient refuses hospice care Full code Dexamethason 2mg IV daily Elevated LFTs Abdominal US - There are at least 2 heterogeneous masses in the mid liver likely representing metastatic disease. Recommend followup CT scan of the abdomen pelvis. Note that these findings were discussed with lines are 6: 51 p.m. with written down and read back verification Most likely 2/2 mets Anxiety and pain Xanax 0.25mg PO TID prn Amitriptyline 150mg PO HS Dilaudid 1mg IVP q4h prn Oxycodone 10mg PO q6h prn Leukocytosis No signs of infection May be due to dexamethasone she was getting d/w oncologist we will not start on antibiotics now Thrombocytopenia Platelets 68 continue to monitor Prophylactic Care DVT - Heparin 1,000units SC q12h - discontinued. SCDs added GI - Protonix 40mg PO daily Case discussed with Dr. Reji Billyn PGY1 <Reji Delvalle - Last Filed: 05/07/18 14:48> Objective - Vital Signs/Intake and Output Vital Signs (last 24 hours): Temp Pulse Resp BP Pulse Ox 97 F L 100 H 20 114/78 99 05/07/18 14:13 05/07/18 14:13 05/07/18 14:13 05/07/18 14:13 05/07/18 08:00 Intake and Output: 05/07/18 05/07/18 06:59 18:59 Intake Total 1660 100 Balance 1660 100 - Medications Medications: Current Medications Albuterol/Ipratropium (Duoneb 3 Mg/0.5 Mg (3 Ml) Ud) 3 ml INH RQ6 PRN PRN Reason: Shortness of Breath Stop: 05/13/18 18:12 Alprazolam (Xanax) 0.25 mg PO TID PRN PRN Reason: Anxiety Stop: 05/12/18 19:11 Last Admin: 05/05/18 20:09 Dose: 0.25 mg Amitriptyline HCl (Elavil) 150 mg PO [facility] Last Admin: 05/06/18 21:25 Dose: 150 mg Dexamethasone (Decadron Inj) 2 mg IV DAILY [facility] Last Admin: 05/07/18 09:28 Dose: 2 mg Hydromorphone HCl (Dilaudid) 1 mg IVP Q4H PRN PRN Reason: Pain, severe (8-10) Last Admin: 05/07/18 06:33 Dose: 1 mg Lactated Ringer's (Lactated Ringer's) 1,000 mls @ 100 mls/hr IV .Q10H [facility] Last Admin: 05/07/18 11:19 Dose: Not Given Levothyroxine Sodium (Synthroid) 25 mcg PO DAILY@0630 [facility] Last Admin: 05/07/18 07:41 Dose: 25 mcg Ondansetron HCl (Zofran Inj) 4 mg IVP Q4H PRN PRN Reason: Anxiety Oxycodone HCl (Oxycodone Immediate Release Tab) 10 mg PO Q6 PRN PRN Reason: Pain, moderate (4-7) Last Admin: 05/05/18 20:09 Dose: 10 mg Pantoprazole Sodium (Protonix Inj) 40 mg IVP DAILY [facility] Last Admin: 05/07/18 13:22 Dose: 40 mg Polyethylene Glycol (Miralax) 17 gm PO HS PRN PRN Reason: Constipation Fluticasone/Salmeterol (Advair Diskus 250/50) 1 puff INH RQ12 [facility] Last Admin: 05/07/18 09:34 Dose: Not Given - Labs Labs: 05/07/18 06:36 05/07/18 06:36 PT 17.0 SECONDS (9.7-12.2) H 05/05/18 16:35 INR 1.6 05/05/18 16:35 APTT 25 SECONDS (21-34) 05/05/18 16:35 Attending/Attestation - Attestation I have personally seen and examined this patient.: Yes I have fully participated in the care of the patient.: Yes I have reviewed all pertinent clinical information, including history, physical exam and plan: Yes Notes (Text): Patient seen and examined with the residents. Agree with above Symptomatic anemia with low Hb on cbc - will transfuse 2 units of pRBC's Overall poor prognosis given her metastatic malignancy. Will speak with family regarding overall condition and possibly Palliative/Comfort Care.
--- NOTE | 2018-05-07 14:41 | CP.PCM.PN ---
Subjective - Date & Time of Evaluation Date of Evaluation: 05/07/18 Time of Evaluation: 14:38 - Subjective Subjective: weak , poor appetite Reviewed CT Chest multiple nodules, Right effusion, LLL mass Objective - Vital Signs/Intake and Output Vital Signs (last 24 hours): Temp Pulse Resp BP Pulse Ox 97 F L 100 H 20 114/78 99 05/07/18 14:13 05/07/18 14:13 05/07/18 14:13 05/07/18 14:13 05/07/18 08:00 Intake and Output: 05/07/18 05/07/18 06:59 18:59 Intake Total 1660 100 Balance 1660 100 - Medications Medications: Current Medications Albuterol/Ipratropium (Duoneb 3 Mg/0.5 Mg (3 Ml) Ud) 3 ml INH RQ6 PRN PRN Reason: Shortness of Breath Stop: 05/13/18 18:12 Alprazolam (Xanax) 0.25 mg PO TID PRN PRN Reason: Anxiety Stop: 05/12/18 19:11 Last Admin: 05/05/18 20:09 Dose: 0.25 mg Amitriptyline HCl (Elavil) 150 mg PO HS [facility] Last Admin: 05/06/18 21:25 Dose: 150 mg Dexamethasone (Decadron Inj) 2 mg IV DAILY [facility] Last Admin: 05/07/18 09:28 Dose: 2 mg Hydromorphone HCl (Dilaudid) 1 mg IVP Q4H PRN PRN Reason: Pain, severe (8-10) Last Admin: 05/07/18 06:33 Dose: 1 mg Lactated Ringer's (Lactated Ringer's) 1,000 mls @ 100 mls/hr IV .Q10H [facility] Last Admin: 05/07/18 11:19 Dose: Not Given Levothyroxine Sodium (Synthroid) 25 mcg PO DAILY@0630 [facility] Last Admin: 05/07/18 07:41 Dose: 25 mcg Ondansetron HCl (Zofran Inj) 4 mg IVP Q4H PRN PRN Reason: Anxiety Oxycodone HCl (Oxycodone Immediate Release Tab) 10 mg PO Q6 PRN PRN Reason: Pain, moderate (4-7) Last Admin: 05/05/18 20:09 Dose: 10 mg Pantoprazole Sodium (Protonix Inj) 40 mg IVP DAILY [facility] Last Admin: 05/07/18 13:22 Dose: 40 mg Polyethylene Glycol (Miralax) 17 gm PO HS PRN PRN Reason: Constipation Fluticasone/Salmeterol (Advair Diskus 250/50) 1 puff INH RQ12 [facility] Last Admin: 05/07/18 09:34 Dose: Not Given - Labs Labs: 05/07/18 06:36 05/07/18 06:36 PT 17.0 SECONDS (9.7-12.2) H 05/05/18 16:35 INR 1.6 05/05/18 16:35 APTT 25 SECONDS (21-34) 05/05/18 16:35 - Constitutional Appears: Cachectic, Chronically Ill - Head Exam Head Exam: ATRAUMATIC, NORMOCEPHALIC - Eye Exam Eye Exam: Normal appearance - ENT Exam ENT Exam: Mucous Membranes Moist - Respiratory Exam Respiratory Exam: Decreased Breath Sounds - Cardiovascular Exam Cardiovascular Exam: REGULAR RHYTHM, +S1, +S2 - GI/Abdominal Exam GI & Abdominal Exam: Normal Bowel Sounds - Rectal Exam Rectal Exam: Deferred - Neurological Exam Neurological Exam: Awake - Psychiatric Exam Psychiatric exam: Flat Affect - Skin Skin Exam: Intact Assessment and Plan (1) 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
--- NOTE | 2018-05-07 16:00 | CT ---
PROCEDURE: CT Chest without contrast HISTORY: Left lung mass COMPARISON: Correlation is made to chest radiograph dated 05/05/2018. TECHNIQUE: Contiguous axial images were obtained through the chest without intravenous contrast enhancement. Sagittal and coronal reconstructions were performed. Radiation dose (DLP): 174.4 mGy-cm. This CT exam was performed using one or more of the following dose reduction techniques: Automated exposure control, adjustment of the mA and/or kV according to patient size, and/or use of iterative reconstruction technique. FINDINGS: LUNGS: Left lower lobe subpleural mass measuring 3.7 x 2.5 cm. 4 mm peripheral left lower lobe nodule (series 3, image 76). 4 mm left apical nodule (series 3, image 18). Diffuse centrilobular emphysema. Visualized airway clear. MEDIASTINUM: Unremarkable thoracic aorta. No aneurysm. Normal sized heart. Main pulmonary artery unremarkable. No vascular congestion. 1.2 x 1.0 cm pretracheal node (series 4, image 41). 1.9 x 1.2 cm precarinal node (series 4, image 45). PLEURA: Small right and trace left pleural effusions. No pneumothorax. BONES: No fracture. No destructive lesion. UPPER ABDOMEN: Multiple low-density hepatic metastases as seen on recent ultrasound. OTHER FINDINGS: Nonvisualization of the right thyroid. Right internal jugular access chest for with catheter tip at the cavoatrial junction. IMPRESSION: Left lower lobe subpleural mass measuring 3.7 x 2.5 cm. New by 4 mm left lower lobe nodule. 4 mm left apical nodule. No nodule seen in the right lung. Small right and trace left pleural effusions. Mediastinal lymph nodes with the largest node measuring 1.9 x 1.2 cm in the precarinal station. Multiple low density hepatic metastases.
--- NOTE | 2018-05-07 16:49 | CP.PCM.PN ---
Subjective - Date & Time of Evaluation Date of Evaluation: 05/07/18 Time of Evaluation: 16:32 - Subjective Subjective: The patient remains confused, no PO intake, in bed, very weak, no active bleeding reported but hemoglobin has dropped again. Lengthy discussion with on the phone, who is aware of patient's rapid deterioration. The patient has no advanced directive in place, but her said his would not have wanted to be resuscitated. Objective - Vital Signs/Intake and Output Vital Signs (last 24 hours): Temp Pulse Resp BP Pulse Ox 98.3 F 94 H 20 124/88 99 05/07/18 14:58 05/07/18 14:58 05/07/18 14:58 05/07/18 14:58 05/07/18 08:00 Intake and Output: 05/07/18 05/07/18 06:59 18:59 Intake Total 1660 100 Balance 1660 100 - Medications Medications: Current Medications Albuterol/Ipratropium (Duoneb 3 Mg/0.5 Mg (3 Ml) Ud) 3 ml INH RQ6 PRN PRN Reason: Shortness of Breath Stop: 05/13/18 18:12 Alprazolam (Xanax) 0.25 mg PO TID PRN PRN Reason: Anxiety Stop: 05/12/18 19:11 Last Admin: 05/05/18 20:09 Dose: 0.25 mg Amitriptyline HCl (Elavil) 150 mg PO [facility] Last Admin: 05/06/18 21:25 Dose: 150 mg Dexamethasone (Decadron Inj) 2 mg IV DAILY [facility] Last Admin: 05/07/18 09:28 Dose: 2 mg Hydromorphone HCl (Dilaudid) 1 mg IVP Q4H PRN PRN Reason: Pain, severe (8-10) Last Admin: 05/07/18 06:33 Dose: 1 mg Lactated Ringer's (Lactated Ringer's) 1,000 mls @ 100 mls/hr IV .Q10H [facility] Last Admin: 05/07/18 11:19 Dose: Not Given Levothyroxine Sodium (Synthroid) 25 mcg PO DAILY@0630 [facility] Last Admin: 05/07/18 07:41 Dose: 25 mcg Ondansetron HCl (Zofran Inj) 4 mg IVP Q4H PRN PRN Reason: Anxiety Oxycodone HCl (Oxycodone Immediate Release Tab) 10 mg PO Q6 PRN PRN Reason: Pain, moderate (4-7) Last Admin: 05/05/18 20:09 Dose: 10 mg Pantoprazole Sodium (Protonix Inj) 40 mg IVP DAILY [facility] Last Admin: 05/07/18 13:22 Dose: 40 mg Polyethylene Glycol (Miralax) 17 gm PO HS PRN PRN Reason: Constipation Fluticasone/Salmeterol (Advair Diskus 250/50) 1 puff INH RQ12 [facility] Last Admin: 05/07/18 09:34 Dose: Not Given - Labs Labs: 05/07/18 06:36 05/07/18 06:36 PT 17.0 SECONDS (9.7-12.2) H 05/05/18 16:35 INR 1.6 05/05/18 16:35 APTT 25 SECONDS (21-34) 05/05/18 16:35 Assessment and Plan (1) Adenocarcinoma of lung metastatic to liver Assessment & Plan: 72 yo woman with advanced, widely metastatic adenocarcinoma of the lung, increasing liver enzymes and progressive cytopenias. Agree with d/c heparin. Prognosis dismal, transfuse for now, will put DNR order in place Status: Chronic
[2018-05-08] MEDS: Lactated Ringer's 1,000 ML IV SCH ×5 (01:09→23:18)
[2018-05-08] MEDS ORDERED: HYDROmorphone 1 mg/ml ISec IVP PRN (04:00)
[2018-05-08] MEDS: Levothyroxine 25 MCG TAB PO SCH (05:43)
--- NOTE | 2018-05-08 09:28 | CP.PCM.PN ---
<Ivy Marrero - Last Filed: 05/08/18 10:27> Subjective - Date & Time of Evaluation Date of Evaluation: 05/08/18 Time of Evaluation: 09:26 - Subjective Subjective: PGY2 progress note for Dr. Erci Pt seen and examined at bedside. No acute events overnight. Denies having any N /V/D/C, F/C, SOB, CP. Patient states she is only tolerating minimal PO intake. Objective - Vital Signs/Intake and Output Vital Signs (last 24 hours): Temp Pulse Resp BP Pulse Ox 98.6 F 105 H 20 109/73 100 05/08/18 08:52 05/08/18 08:52 05/08/18 08:52 05/08/18 08:52 05/08/18 08:52 Intake and Output: 05/08/18 05/08/18 06:59 18:59 Intake Total 800 Balance 800 - Medications Medications: Current Medications Albuterol/Ipratropium (Duoneb 3 Mg/0.5 Mg (3 Ml) Ud) 3 ml INH RQ6 PRN PRN Reason: Shortness of Breath Stop: 05/13/18 18:12 Alprazolam (Xanax) 0.25 mg PO TID PRN PRN Reason: Anxiety Stop: 05/12/18 19:11 Last Admin: 05/05/18 20:09 Dose: 0.25 mg Amitriptyline HCl (Elavil) 150 mg PO HS [facility] Last Admin: 05/07/18 21:36 Dose: Not Given Dexamethasone (Decadron Inj) 2 mg IV DAILY [facility] Last Admin: 05/07/18 09:28 Dose: 2 mg Hydromorphone HCl (Dilaudid) 1 mg IVP Q4H PRN PRN Reason: Pain, severe (8-10) Last Admin: 05/08/18 04:00 Dose: 1 mg Lactated Ringer's (Lactated Ringer's) 1,000 mls @ 100 mls/hr IV .Q10H [facility] Last Admin: 05/08/18 07:21 Dose: Not Given Levothyroxine Sodium (Synthroid) 25 mcg PO DAILY@0630 [facility] Last Admin: 05/08/18 05:43 Dose: 25 mcg Ondansetron HCl (Zofran Inj) 4 mg IVP Q4H PRN PRN Reason: Anxiety Oxycodone HCl (Oxycodone Immediate Release Tab) 10 mg PO Q6 PRN PRN Reason: Pain, moderate (4-7) Last Admin: 05/05/18 20:09 Dose: 10 mg Pantoprazole Sodium (Protonix Inj) 40 mg IVP DAILY [facility] Last Admin: 05/07/18 13:22 Dose: 40 mg Polyethylene Glycol (Miralax) 17 gm PO HS PRN PRN Reason: Constipation Fluticasone/Salmeterol (Advair Diskus 250/50) 1 puff INH RQ12 [facility] Last Admin: 05/07/18 09:34 Dose: Not Given - Labs Labs: 05/07/18 06:36 05/07/18 06:36 PT 17.0 SECONDS (9.7-12.2) H 05/05/18 16:35 INR 1.6 05/05/18 16:35 APTT 25 SECONDS (21-34) 05/05/18 16:35 - Constitutional Appears: Non-toxic, No Acute Distress - Head Exam Head Exam: ATRAUMATIC, NORMOCEPHALIC - ENT Exam ENT Exam: Mucous Membranes Moist - Respiratory Exam Respiratory Exam: Clear to Ausculation Bilateral. absent: Rales, Rhonchi, Wheezes - Cardiovascular Exam Cardiovascular Exam: REGULAR RHYTHM, +S1, +S2 - GI/Abdominal Exam GI & Abdominal Exam: Soft, Tenderness, Normal Bowel Sounds. absent: Distended, Firm, Guarding, Rigid, Organomegaly - Extremities Exam Extremities Exam: absent: Pedal Edema, Tenderness - Neurological Exam Neurological Exam: Alert, Awake, Oriented x3 - Psychiatric Exam Psychiatric exam: Normal Affect, Normal Mood - Skin Skin Exam: Dry, Intact, Normal Color, Warm Assessment and Plan - Assessment and Plan (Free Text) Assessment: 72 years old female with metastatic lung cancer brought in for symptomatic anemia. has mets to brain,liver and bones. s/p chemo and brain radiation treatment. She wants full treatment including resuscitation if needed. patient is weak and poor intake. Upon admission she was found to be anemic with a Hgb of 7.7. She had a creatinine 2.3 and high LFT. As per Dr Rizo her creatinine and LFT were previously normal. Plan: Symptomatic anemia Pending repeat labs from this morning Upon admission, Hgb 7.7 on 05/05/18 * transfused 2 units of PRBC on 05/05/18 * transfused 1 unit 05/07/18 * Stool Occult Positive (05/07/18) * Dr. Rizo will call to discuss declining condition of patient with and possible change in resuscitation status to DNR. Patient is currently a full code. likely due to ca with mets continue to monitor for overt bleeding. Heparin held due to positive stool occult Acute renal failure As per pt she has poor appetite and not able to drink Zofran 4mg IVP q4h prn LR @100mL/hr monitor creatinine Lung ca with mets Hem/Onc consulted, Dr. Rizo d/w Patient's oncologist, Dr. Rizo - no plan for further treatment Poor prognosis Patient refuses hospice care Full code Dexamethason 2mg IV daily Will continue pain management with Dilaudid 2 mg IVP q2 and Oxycodone 10 mg po q6 prn Continue advair and duonebs Elevated LFTs Abdominal US - There are at least 2 heterogeneous masses in the mid liver likely representing metastatic disease. Recommend followup CT scan of the abdomen pelvis. Note that these findings were discussed with lines are 6: 51 p.m. with written down and read back verification Most likely 2/2 mets Anxiety and pain Xanax 0.25mg PO TID prn Amitriptyline 150mg PO HS Leukocytosis Blood cultures positive vs. steroid use d/w oncologist we will not start on antibiotics now Thrombocytopenia Platelets 68 continue to monitor Prophylactic Care DVT - oral AC held due to anemia with positive stool occult SCDs added GI - Protonix 40mg PO daily Case discussed with attending, Dr. Eric <Ayan Eric - Last Filed: 05/09/18 17:19> Objective - Vital Signs/Intake and Output Vital Signs (last 24 hours): Temp Pulse Resp BP Pulse Ox 98.8 F 100 H 20 106/65 100 05/08/18 15:32 05/08/18 15:32 05/08/18 15:32 05/08/18 15:32 05/08/18 15:32 Intake and Output: 05/08/18 05/08/18 06:59 18:59 Intake Total 800 800 Balance 800 800 - Medications Medications: Current Medications Albuterol/Ipratropium (Duoneb 3 Mg/0.5 Mg (3 Ml) Ud) 3 ml INH RQ6 PRN PRN Reason: Shortness of Breath Stop: 05/13/18 18:12 Alprazolam (Xanax) 0.25 mg PO TID PRN PRN Reason: Anxiety Stop: 05/12/18 19:11 Last Admin: 05/05/18 20:09 Dose: 0.25 mg Amitriptyline HCl (Elavil) 150 mg PO HS [facility] Last Admin: 05/07/18 21:36 Dose: Not Given Dexamethasone (Decadron Inj) 2 mg IV DAILY [facility] Last Admin: 05/08/18 09:39 Dose: 2 mg Docusate Sodium (Colace) 100 mg PO BID [facility] Last Admin: 05/08/18 17:18 Dose: Not Given Hydromorphone HCl (Dilaudid) 2 mg IVP Q2H PRN PRN Reason: Pain, severe (8-10) Last Admin: 05/08/18 13:23 Dose: 2 mg Lactated Ringer's (Lactated Ringer's) 1,000 mls @ 100 mls/hr IV .Q10H [facility] Last Admin: 05/08/18 16:24 Dose: Not Given Levothyroxine Sodium (Synthroid) 25 mcg PO DAILY@0630 [facility] Last Admin: 05/08/18 05:43 Dose: 25 mcg Ondansetron HCl (Zofran Inj) 4 mg IVP Q4H PRN PRN Reason: Anxiety Oxycodone HCl (Oxycodone Immediate Release Tab) 10 mg PO Q6 PRN PRN Reason: Pain, moderate (4-7) Last Admin: 05/05/18 20:09 Dose: 10 mg Pantoprazole Sodium (Protonix Inj) 40 mg IVP DAILY [facility] Last Admin: 05/08/18 09:40 Dose: 40 mg Polyethylene Glycol (Miralax) 17 gm PO HS PRN PRN Reason: Constipation Fluticasone/Salmeterol (Advair Diskus 250/50) 1 puff INH RQ12 [facility] Last Admin: 05/08/18 10:50 Dose: Not Given - Labs Labs: 05/08/18 16:19 05/08/18 16:19 PT 17.0 SECONDS (9.7-12.2) H 05/05/18 16:35 INR 1.6 05/05/18 16:35 APTT 25 SECONDS (21-34) 05/05/18 16:35 Attending/Attestation - Attestation I have personally seen and examined this patient.: Yes I have fully participated in the care of the patient.: Yes I have reviewed all pertinent clinical information, including history, physical exam and plan: Yes Notes (Text): Patient very lethargic.As per staff patient was in pain when she was awake, sleep after pain meds. D/W her . He agrees for in patient hospice care We will ask for a hospice care stop blood test,pain meds and oxygen as needed
[2018-05-08] MEDS: Dexamethasone 4 mg/1 ml IV SCH (09:39)
[2018-05-08] MEDS: Fluticasone-Salmeterol 250-50mcg Diskus INH SCH ×2 (10:50→19:07)
[2018-05-08] MEDS: HYDROmorphone 1 mg/ml ISec IVP PRN (13:23)
[2018-05-08 16:26] LABS: BASO % 0.3 % (0.0-2.0); EOS % 0.1 % (0.0-4.0); HEMOGLOBIN 7.4 g/dL (11.0-16.0); LYMPH # 0.4 K/uL (1.0-4.3); LYMPH % 2.5 % (20.0-40.0); MEAN CORPUSCULAR HEMOGLOBIN 30.8 pg (27.0-31.0); MEAN CORPUSCULAR HGB CONC 33.3 g/dL (33.0-37.0); MEAN PLATELET VOLUME 9.6 fL (7.2-11.7); MONO # 0.8 K/uL (0.0-0.8); MONO % 5.2 % (0.0-10.0); NEUT # 14.4 K/uL (1.8-7.0); NEUT % 91.9 % (50.0-75.0); NRBC % 0.5 % (0.0-2.0); PLATELET COUNT 52 K/uL (130-400); RED CELL DISTRIBUTION WIDTH 18.5 % (11.5-14.5); WHITE BLOOD COUNT 15.7 K/uL (4.8-10.8)
[2018-05-08 16:40] LABS: MEAN CELL VOLUME 92.6 fL (81.0-99.0)
[2018-05-08 16:45] LABS: ALB/GLOB RATIO 1.1 (1.0-2.1); ALBUMIN 2.5 g/dL (3.5-5.0); CALCIUM 7.1 mg/dl (8.6-10.4)
[2018-05-08 17:12] LABS: ANISOCYTOSIS SLIGHT; BANDS 9 % (0-2); HYPOCHROMIC SLIGHT; LYMPHOCYTE 3 % (20-40); NEUTROPHIL 88 % (50-75); PLATELET ESTIMATE DECREASED (NORMAL); POLYCHROMIC SLIGHT; TOTAL CELLS COUNTED 100
--- NOTE | 2018-05-09 01:30 | CP.PCM.PN ---
<Nayla Cee - Last Filed: 05/09/18 02:14> Subjective - Date & Time of Evaluation Date of Evaluation: 05/09/18 Time of Evaluation: 01:30 - Subjective Subjective: Medicine progress note for Dr. Eric Patient was seen and examined at bedside. Patient reports feeling tired and complains that her feet hurt. Patient denies chest pain, abdominal pain, nausea , vomiting, headaches, fevers, leg pain and swelling. No acute events overnight. Objective - Vital Signs/Intake and Output Vital Signs (last 24 hours): Temp Pulse Resp BP Pulse Ox 98.2 F 90 20 113/74 100 05/09/18 00:00 05/09/18 00:00 05/09/18 00:00 05/09/18 00:00 05/09/18 00:00 Intake and Output: 05/08/18 05/09/18 18:59 06:59 Intake Total 800 800 Balance 800 800 - Medications Medications: Current Medications Albuterol/Ipratropium (Duoneb 3 Mg/0.5 Mg (3 Ml) Ud) 3 ml INH RQ6 PRN PRN Reason: Shortness of Breath Stop: 05/13/18 18:12 Alprazolam (Xanax) 0.25 mg PO TID PRN PRN Reason: Anxiety Stop: 05/12/18 19:11 Last Admin: 05/05/18 20:09 Dose: 0.25 mg Amitriptyline HCl (Elavil) 150 mg PO HS [facility] Last Admin: 05/08/18 21:39 Dose: Not Given Dexamethasone (Decadron Inj) 2 mg IV DAILY [facility] Last Admin: 05/08/18 09:39 Dose: 2 mg Docusate Sodium (Colace) 100 mg PO BID [facility] Last Admin: 05/08/18 17:18 Dose: Not Given Hydromorphone HCl (Dilaudid) 2 mg IVP Q2H PRN PRN Reason: Pain, severe (8-10) Last Admin: 05/08/18 13:23 Dose: 2 mg Lactated Ringer's (Lactated Ringer's) 1,000 mls @ 100 mls/hr IV .Q10H [facility] Last Admin: 05/09/18 00:00 Dose: 100 mls/hr Levothyroxine Sodium (Synthroid) 25 mcg PO DAILY@0630 [facility] Last Admin: 05/08/18 05:43 Dose: 25 mcg Ondansetron HCl (Zofran Inj) 4 mg IVP Q4H PRN PRN Reason: Anxiety Oxycodone HCl (Oxycodone Immediate Release Tab) 10 mg PO Q6 PRN PRN Reason: Pain, moderate (4-7) Last Admin: 05/05/18 20:09 Dose: 10 mg Pantoprazole Sodium (Protonix Inj) 40 mg IVP DAILY [facility] Last Admin: 05/08/18 09:40 Dose: 40 mg Polyethylene Glycol (Miralax) 17 gm PO HS PRN PRN Reason: Constipation Fluticasone/Salmeterol (Advair Diskus 250/50) 1 puff INH RQ12 [facility] Last Admin: 05/08/18 19:07 Dose: Not Given - Labs Labs: 05/08/18 16:19 05/08/18 16:19 PT 17.0 SECONDS (9.7-12.2) H 05/05/18 16:35 INR 1.6 05/05/18 16:35 APTT 25 SECONDS (21-34) 05/05/18 16:35 - Additional Findings Additional findings: - Constitutional Appears: Non-toxic, No Acute Distress - Head Exam Head Exam: ATRAUMATIC, NORMOCEPHALIC - ENT Exam ENT Exam: Mucous Membranes Moist - Respiratory Exam Respiratory Exam: Clear to Ausculation Bilateral. absent: Rales, Rhonchi, Wheezes - Cardiovascular Exam Cardiovascular Exam: REGULAR RHYTHM, +S1, +S2 - GI/Abdominal Exam GI & Abdominal Exam: Soft, Tenderness, Normal Bowel Sounds. absent: Distended, Firm, Guarding, Rigid, Organomegaly - Extremities Exam Extremities Exam: absent: Pedal Edema, Tenderness, swelling, ecchymosis - Neurological Exam Neurological Exam: Awake, Oriented x3 - Psychiatric Exam Psychiatric exam: Normal Affect, Normal Mood - Skin Skin Exam: Dry, Intact, Normal Color, Warm Assessment and Plan - Assessment and Plan (Free Text) Plan: Symptomatic anemia Pending repeat labs from this morning Upon admission, Hgb 7.7 on 05/05/18 * transfused 2 units of PRBC on 05/05/18 * transfused 1 unit 05/07/18 * Stool Occult Positive (05/07/18) Dr. Rizo discussed declining condition of patient with - changed resuscitation status to DNR/DNI on 05/07/18. Likely due to ca with mets continue to monitor for overt bleeding. Heparin held due to positive stool occult Acute renal failure As per pt she has poor appetite and not able to drink Zofran 4mg IVP q4h prn LR @100mL/hr monitor creatinine Lung ca with mets Hem/Onc consulted, Dr. Rizo d/w Patient's oncologist, Dr. Rizo - no plan for further treatment Poor prognosis Changed resuscitation status to DNR/DNI on 05/07/18 Dexamethasone 2mg IV daily Will continue pain management with Dilaudid 2 mg IVP q2 and Oxycodone 10 mg po q6 prn Continue advair and duonebs Elevated LFTs Abdominal US - There are at least 2 heterogeneous masses in the mid liver likely representing metastatic disease. Recommend followup CT scan of the abdomen pelvis. Note that these findings were discussed with lines are 6: 51 p.m. with written down and read back verification Most likely 2/2 mets Anxiety and pain Xanax 0.25mg PO TID prn Amitriptyline 150mg PO HS Leukocytosis Blood cultures positive vs. steroid use d/w oncologist we will not start on antibiotics now Thrombocytopenia Platelets 68 continue to monitor Prophylactic Care DVT - oral AC held due to anemia with positive stool occult SCDs added GI - Protonix 40mg PO daily <Ayan Eric - Last Filed: 05/09/18 17:21> Objective - Vital Signs/Intake and Output Vital Signs (last 24 hours): Temp Pulse Resp BP Pulse Ox 97.4 F L 110 H 20 100/66 99 05/09/18 15:31 05/09/18 15:31 05/09/18 15:31 05/09/18 15:31 05/09/18 15:31 Intake and Output: 05/09/18 05/09/18 06:59 18:59 Intake Total 800 800 Balance 800 800 - Medications Medications: Current Medications Albuterol/Ipratropium (Duoneb 3 Mg/0.5 Mg (3 Ml) Ud) 3 ml INH RQ6 PRN PRN Reason: Shortness of Breath Stop: 05/13/18 18:12 Alprazolam (Xanax) 0.25 mg PO TID PRN PRN Reason: Anxiety Stop: 05/12/18 19:11 Last Admin: 05/05/18 20:09 Dose: 0.25 mg Amitriptyline HCl (Elavil) 150 mg PO HS [facility] Last Admin: 05/08/18 21:39 Dose: Not Given Dexamethasone (Decadron Inj) 2 mg IV DAILY [facility] Last Admin: 05/09/18 09:26 Dose: 2 mg Docusate Sodium (Colace) 100 mg PO BID [facility] Last Admin: 05/09/18 09:21 Dose: Not Given Hydromorphone HCl (Dilaudid) 2 mg IVP Q2H PRN PRN Reason: Pain, severe (8-10) Last Admin: 05/09/18 09:39 Dose: 2 mg Lactated Ringer's (Lactated Ringer's) 1,000 mls @ 100 mls/hr IV .Q10H [facility] Last Admin: 05/09/18 09:31 Dose: 100 mls/hr Levothyroxine Sodium (Synthroid) 25 mcg PO DAILY@0630 [facility] Last Admin: 05/09/18 05:40 Dose: 25 mcg Ondansetron HCl (Zofran Inj) 4 mg IVP Q4H PRN PRN Reason: Anxiety Oxycodone HCl (Oxycodone Immediate Release Tab) 10 mg PO Q6 PRN PRN Reason: Pain, moderate (4-7) Last Admin: 05/05/18 20:09 Dose: 10 mg Pantoprazole Sodium (Protonix Inj) 40 mg IVP DAILY [facility] Last Admin: 05/09/18 09:25 Dose: 40 mg Polyethylene Glycol (Miralax) 17 gm PO HS PRN PRN Reason: Constipation Fluticasone/Salmeterol (Advair Diskus 250/50) 1 puff INH RQ12 [facility] Last Admin: 05/09/18 10:23 Dose: Not Given - Labs Labs: 05/09/18 07:48 05/09/18 07:48 PT 17.0 SECONDS (9.7-12.2) H 05/05/18 16:35 INR 1.6 05/05/18 16:35 APTT 25 SECONDS (21-34) 05/05/18 16:35 Attending/Attestation - Attestation I have personally seen and examined this patient.: Yes I have fully participated in the care of the patient.: Yes I have reviewed all pertinent clinical information, including history, physical exam and plan: Yes Notes (Text): Patient was seen and examined. She is lethargic . Discussed with CW. Who called for hospice care we will follow. continue comfort care. I agree with the resident's assessment and the plan
[2018-05-09] MEDS: HYDROmorphone 1 mg/ml ISec IVP PRN ×3 (02:20→19:12)
[2018-05-09] MEDS: Levothyroxine 25 MCG TAB PO SCH (05:40)
[2018-05-09 08:09] LABS: HEMOGLOBIN 6.8 g/dL (11.0-16.0); MEAN CELL VOLUME 93.9 fL (81.0-99.0); MEAN CORPUSCULAR HEMOGLOBIN 31.2 pg (27.0-31.0); MEAN CORPUSCULAR HGB CONC 33.3 g/dL (33.0-37.0); MEAN PLATELET VOLUME 10.2 fL (7.2-11.7); RBC 2.18 Mil/uL (3.80-5.20); WHITE BLOOD COUNT 16.8 K/uL (4.8-10.8)
[2018-05-09 08:14] LABS: CALCIUM 7.3 mg/dl (8.6-10.4)
[2018-05-09] MEDS: Dexamethasone 4 mg/1 ml IV SCH (09:26)
[2018-05-09] MEDS: Lactated Ringer's 1,000 ML IV SCH ×3 (09:31→19:20)
[2018-05-09] MEDS: Fluticasone-Salmeterol 250-50mcg Diskus INH SCH ×2 (10:23→19:41)
[2018-05-10] MEDS: Lactated Ringer's 1,000 ML IV SCH ×4 (05:23→21:42)
[2018-05-10] MEDS: HYDROmorphone 1 mg/ml ISec IVP PRN ×3 (05:25→18:32)
[2018-05-10] MEDS: Levothyroxine 25 MCG TAB PO SCH (05:30)
[2018-05-10] MEDS: Fluticasone-Salmeterol 250-50mcg Diskus INH SCH ×2 (08:58→19:17)
[2018-05-10] MEDS: Dexamethasone 4 mg/1 ml IV SCH (10:45)
--- NOTE | 2018-05-10 14:54 | CP.PCM.PN ---
Subjective - Date & Time of Evaluation Date of Evaluation: 05/10/18 Time of Evaluation: 14:52 - Subjective Subjective: progressive deterioration due to underlying adenoca with mets, now DNR as per Objective - Vital Signs/Intake and Output Vital Signs (last 24 hours): Temp Pulse Resp BP Pulse Ox 97.9 F 103 H 20 92/57 L 95 05/10/18 08:00 05/10/18 08:00 05/10/18 08:00 05/10/18 08:00 05/10/18 08:00 Intake and Output: 05/10/18 05/10/18 06:59 18:59 Intake Total 850 Balance 850 - Medications Medications: Current Medications Albuterol/Ipratropium (Duoneb 3 Mg/0.5 Mg (3 Ml) Ud) 3 ml INH RQ6 PRN PRN Reason: Shortness of Breath Stop: 05/13/18 18:12 Alprazolam (Xanax) 0.25 mg PO TID PRN PRN Reason: Anxiety Stop: 05/12/18 19:11 Last Admin: 05/05/18 20:09 Dose: 0.25 mg Amitriptyline HCl (Elavil) 150 mg PO HS [facility] Last Admin: 05/09/18 21:36 Dose: Not Given Dexamethasone (Decadron Inj) 2 mg IV DAILY [facility] Last Admin: 05/10/18 10:45 Dose: 2 mg Docusate Sodium (Colace) 100 mg PO BID [facility] Last Admin: 05/10/18 10:50 Dose: Not Given Hydromorphone HCl (Dilaudid) 2 mg IVP Q2H PRN PRN Reason: Pain, severe (8-10) Last Admin: 05/10/18 12:30 Dose: 2 mg Lactated Ringer's (Lactated Ringer's) 1,000 mls @ 100 mls/hr IV .Q10H [facility] Last Admin: 05/10/18 14:51 Dose: 100 mls/hr Levothyroxine Sodium (Synthroid) 25 mcg PO DAILY@0630 [facility] Last Admin: 05/10/18 05:30 Dose: 25 mcg Ondansetron HCl (Zofran Inj) 4 mg IVP Q4H PRN PRN Reason: Anxiety Oxycodone HCl (Oxycodone Immediate Release Tab) 10 mg PO Q6 PRN PRN Reason: Pain, moderate (4-7) Last Admin: 05/05/18 20:09 Dose: 10 mg Pantoprazole Sodium (Protonix Inj) 40 mg IVP DAILY [facility] Last Admin: 05/10/18 10:46 Dose: 40 mg Polyethylene Glycol (Miralax) 17 gm PO HS PRN PRN Reason: Constipation Fluticasone/Salmeterol (Advair Diskus 250/50) 1 puff INH RQ12 [facility] Last Admin: 05/10/18 08:58 Dose: Not Given - Labs Labs: 05/09/18 07:48 05/09/18 07:48 PT 17.0 SECONDS (9.7-12.2) H 05/05/18 16:35 INR 1.6 05/05/18 16:35 APTT 25 SECONDS (21-34) 05/05/18 16:35 - Constitutional Appears: No Acute Distress, Chronically Ill - Head Exam Head Exam: NORMOCEPHALIC - ENT Exam ENT Exam: Mucous Membranes Moist - Respiratory Exam Respiratory Exam: Decreased Breath Sounds - Cardiovascular Exam Cardiovascular Exam: +S1 - GI/Abdominal Exam GI & Abdominal Exam: Normal Bowel Sounds - Rectal Exam Rectal Exam: Deferred Assessment and Plan (1) 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
--- NOTE | 2018-05-10 15:23 | CP.PCM.PN ---
<López Snowden - Last Filed: 05/10/18 15:20> Subjective - Date & Time of Evaluation Date of Evaluation: 05/10/18 Time of Evaluation: 09:25 - Subjective Subjective: PGY1 Medicine Note for Dr. High Patient seen and examined at bedside this morning. No acute events overnight. Patient is deteriorating every day and is very lethargic today. She has not eaten any of her breakfast. She complains of weakness and is having difficulty talking. Patient has no complaints other than weakness today. Denies fevers, chills, nausea, vomiting, diarrhea, constipations, chest pain, palpitations, headaches, numbness or tingling. Objective - Vital Signs/Intake and Output Vital Signs (last 24 hours): Temp Pulse Resp BP Pulse Ox 97.9 F 103 H 20 92/57 L 95 05/10/18 08:00 05/10/18 08:00 05/10/18 08:00 05/10/18 08:00 05/10/18 08:00 Intake and Output: 05/10/18 05/10/18 06:59 18:59 Intake Total 850 820 Balance 850 820 - Medications Medications: Current Medications Albuterol/Ipratropium (Duoneb 3 Mg/0.5 Mg (3 Ml) Ud) 3 ml INH RQ6 PRN PRN Reason: Shortness of Breath Stop: 05/13/18 18:12 Alprazolam (Xanax) 0.25 mg PO TID PRN PRN Reason: Anxiety Stop: 05/12/18 19:11 Last Admin: 05/05/18 20:09 Dose: 0.25 mg Amitriptyline HCl (Elavil) 150 mg PO HS [facility] Last Admin: 05/09/18 21:36 Dose: Not Given Dexamethasone (Decadron Inj) 2 mg IV DAILY [facility] Last Admin: 05/10/18 10:45 Dose: 2 mg Docusate Sodium (Colace) 100 mg PO BID [facility] Last Admin: 05/10/18 10:50 Dose: Not Given Hydromorphone HCl (Dilaudid) 2 mg IVP Q2H PRN PRN Reason: Pain, severe (8-10) Last Admin: 05/10/18 12:30 Dose: 2 mg Lactated Ringer's (Lactated Ringer's) 1,000 mls @ 100 mls/hr IV .Q10H [facility] Last Admin: 05/10/18 14:51 Dose: 100 mls/hr Levothyroxine Sodium (Synthroid) 25 mcg PO DAILY@0630 [facility] Last Admin: 05/10/18 05:30 Dose: 25 mcg Ondansetron HCl (Zofran Inj) 4 mg IVP Q4H PRN PRN Reason: Anxiety Oxycodone HCl (Oxycodone Immediate Release Tab) 10 mg PO Q6 PRN PRN Reason: Pain, moderate (4-7) Last Admin: 05/05/18 20:09 Dose: 10 mg Pantoprazole Sodium (Protonix Inj) 40 mg IVP DAILY [facility] Last Admin: 05/10/18 10:46 Dose: 40 mg Polyethylene Glycol (Miralax) 17 gm PO HS PRN PRN Reason: Constipation Fluticasone/Salmeterol (Advair Diskus 250/50) 1 puff INH RQ12 [facility] Last Admin: 05/10/18 08:58 Dose: Not Given - Labs Labs: 05/09/18 07:48 05/09/18 07:48 PT 17.0 SECONDS (9.7-12.2) H 05/05/18 16:35 INR 1.6 05/05/18 16:35 APTT 25 SECONDS (21-34) 05/05/18 16:35 - Constitutional Appears: No Acute Distress, Older Than Stated Age, Chronically Ill - Head Exam Head Exam: ATRAUMATIC - Eye Exam Eye Exam: EOMI - ENT Exam ENT Exam: Mucous Membranes Moist - Respiratory Exam Respiratory Exam: Decreased Breath Sounds, NORMAL BREATHING PATTERN. absent: Accessory Muscle Use, Rales, Rhonchi, Wheezes - Cardiovascular Exam Cardiovascular Exam: REGULAR RHYTHM, +S1 - GI/Abdominal Exam GI & Abdominal Exam: Soft. absent: Distended, Firm, Guarding, Rigid, Tenderness - Extremities Exam Extremities Exam: absent: Calf Tenderness, Pedal Edema - Neurological Exam Neurological Exam: Altered, Awake. absent: Oriented x3 (oriented to self only today) - Psychiatric Exam Psychiatric exam: Depressed, Flat Affect Additional comments: very lethargic - Skin Skin Exam: Dry, Warm Assessment and Plan - Assessment and Plan (Free Text) Assessment: 72 years old female with metastatic lung cancer brought in for symptomatic anemia. has mets to brain,liver and bones. s/p chemo and brain radiation treatment. She wants full treatment including resuscitation if needed. patient is weak and poor intake. Upon admission she was found to be anemic with a Hgb of 7.7. She had a creatinine 2.3 and high LFT. As per Dr Rizo her creatinine and LFT were previously normal. Plan: Symptomatic anemia Upon admission, Hgb 7.7 on 05/05/18 * transfused 2 units of PRBC on 05/05/18 Hgb dropped to 6.8 on 05/09/18 * Transfuse 2 units of pRBC on 05/07/18 * Stool Occult Positive (05/07/18) * Dr. Rizo discussed declining condition of patient with - changed resuscitation status to DNR/DNI on 05/07/18. likely due to ca with mets continue to monitor Acute renal failure As per pt she has poor appetite and not able to drink Zofran 4mg IVP q4h prn LR @100mL/hr monitor creatinine Lung ca with mets Hem/Onc consulted, Dr. Rizo d/w Patient's oncologist, Dr. Rizo - no plan for further treatment Poor prognosis Patient refuses hospice care Full code Dexamethason 2mg IV daily Elevated LFTs Abdominal US - There are at least 2 heterogeneous masses in the mid liver likely representing metastatic disease. Recommend followup CT scan of the abdomen pelvis. Note that these findings were discussed with lines are 6: 51 p.m. with written down and read back verification Most likely 2/2 mets Anxiety and pain Xanax 0.25mg PO TID prn Amitriptyline 150mg PO HS Dilaudid 1mg IVP q4h prn Oxycodone 10mg PO q6h prn Leukocytosis No signs of infection May be due to dexamethasone she was getting d/w oncologist we will not start on antibiotics now Thrombocytopenia Platelets 81 continue to monitor Prophylactic Care DVT - SCDs added GI - Protonix 40mg PO daily DISPO: Decision was made over the weekend with Dr. Eric and the patient's for comfort care and have the patient transferred to inpatient hospice. All blood tests have been stopped. Pain medications and oxygen as needed. Case discussed with Dr. Anila Snowden PGY1 <Tal High - Last Filed: 05/10/18 16:35> Objective - Vital Signs/Intake and Output Vital Signs (last 24 hours): Temp Pulse Resp BP Pulse Ox 97.9 F 101 H 20 90/58 L 95 05/10/18 16:00 05/10/18 16:00 05/10/18 16:00 05/10/18 16:00 05/10/18 16:00 Intake and Output: 05/10/18 05/10/18 06:59 18:59 Intake Total 850 820 Balance 850 820 - Medications Medications: Current Medications Albuterol/Ipratropium (Duoneb 3 Mg/0.5 Mg (3 Ml) Ud) 3 ml INH RQ6 PRN PRN Reason: Shortness of Breath Stop: 05/13/18 18:12 Alprazolam (Xanax) 0.25 mg PO TID PRN PRN Reason: Anxiety Stop: 05/12/18 19:11 Last Admin: 05/05/18 20:09 Dose: 0.25 mg Amitriptyline HCl (Elavil) 150 mg PO HS [facility] Last Admin: 05/09/18 21:36 Dose: Not Given Dexamethasone (Decadron Inj) 2 mg IV DAILY [facility] Last Admin: 05/10/18 10:45 Dose: 2 mg Docusate Sodium (Colace) 100 mg PO BID [facility] Last Admin: 05/10/18 10:50 Dose: Not Given Hydromorphone HCl (Dilaudid) 2 mg IVP Q2H PRN PRN Reason: Pain, severe (8-10) Last Admin: 05/10/18 12:30 Dose: 2 mg Lactated Ringer's (Lactated Ringer's) 1,000 mls @ 100 mls/hr IV .Q10H [facility] Last Admin: 05/10/18 14:51 Dose: 100 mls/hr Levothyroxine Sodium (Synthroid) 25 mcg PO DAILY@0630 [facility] Last Admin: 05/10/18 05:30 Dose: 25 mcg Ondansetron HCl (Zofran Inj) 4 mg IVP Q4H PRN PRN Reason: Anxiety Oxycodone HCl (Oxycodone Immediate Release Tab) 10 mg PO Q6 PRN PRN Reason: Pain, moderate (4-7) Last Admin: 05/05/18 20:09 Dose: 10 mg Pantoprazole Sodium (Protonix Inj) 40 mg IVP DAILY [facility] Last Admin: 05/10/18 10:46 Dose: 40 mg Polyethylene Glycol (Miralax) 17 gm PO HS PRN PRN Reason: Constipation Fluticasone/Salmeterol (Advair Diskus 250/50) 1 puff INH RQ12 [facility] Last Admin: 05/10/18 08:58 Dose: Not Given - Labs Labs: 05/09/18 07:48 05/09/18 07:48 PT 17.0 SECONDS (9.7-12.2) H 05/05/18 16:35 INR 1.6 05/05/18 16:35 APTT 25 SECONDS (21-34) 05/05/18 16:35 Attending/Attestation - Attestation I have personally seen and examined this patient.: Yes I have fully participated in the care of the patient.: Yes I have reviewed all pertinent clinical information, including history, physical exam and plan: Yes Notes (Text): Medical attending: Patient was seen and examined by me. Agree with the above note by the resident This is my first time seeing the patient and we reviewed the previous notes and also discussed with the medical residents who have been seeing her for the past week The patient's situation has declined precipitously since admission. She is no longer able to have a conversation with us. Heme/Oncology has explained to family members that the situation was not good and prognosis was very poor. She is now DNR and DNI They are trying to do inpatient hospice. Tal High 05/10/18 16:33
--- NOTE | 2018-05-10 16:09 | CARD ---
APPROVED REPORT EKG Measurement Heart [id number] <Conclusion> Normal sinus rhythm Poor R wave progression Abnormal ECG
[2018-05-11] MEDS: oxyCODONE 10 mg Immediate Release Tab PO PRN (00:40)
[2018-05-11] MEDS: Lactated Ringer's 1,000 ML IV SCH ×4 (00:55→21:18)
[2018-05-11] MEDS: HYDROmorphone 1 mg/ml ISec IVP PRN ×3 (03:30→19:06)
[2018-05-11] MEDS: Levothyroxine 25 MCG TAB PO SCH (05:55)
[2018-05-11] MEDS: Fluticasone-Salmeterol 250-50mcg Diskus INH SCH ×2 (08:27→20:13)
[2018-05-11] MEDS: Dexamethasone 4 mg/1 ml IV SCH (10:21)
--- NOTE | 2018-05-11 11:41 | CP.PCM.PN ---
<López Snowden - Last Filed: 05/11/18 12:09> Subjective - Date & Time of Evaluation Date of Evaluation: 05/11/18 Time of Evaluation: 10:37 - Subjective Subjective: PGY1 Medicine Note for Dr. High Patient seen and examined this morning. Patient is very lethargic and confused today. Patient has been deteriorating each day. She is moving all four extremities but her speech is incomprehensible. ROS is unattainable. Objective - Vital Signs/Intake and Output Vital Signs (last 24 hours): Temp Pulse Resp BP Pulse Ox 97.6 F 90 19 95/56 L 95 05/11/18 08:00 05/11/18 08:00 05/11/18 08:00 05/11/18 08:00 05/11/18 08:00 Intake and Output: 05/11/18 05/11/18 06:59 18:59 Intake Total 1715 Output Total 1 Balance 1714 - Medications Medications: Current Medications Albuterol/Ipratropium (Duoneb 3 Mg/0.5 Mg (3 Ml) Ud) 3 ml INH RQ6 PRN PRN Reason: Shortness of Breath Stop: 05/13/18 18:12 Alprazolam (Xanax) 0.25 mg PO TID PRN PRN Reason: Anxiety Stop: 05/12/18 19:11 Last Admin: 05/05/18 20:09 Dose: 0.25 mg Amitriptyline HCl (Elavil) 150 mg PO HS [facility] Last Admin: 05/10/18 21:44 Dose: Not Given Dexamethasone (Decadron Inj) 2 mg IV DAILY [facility] Last Admin: 05/11/18 10:21 Dose: 2 mg Docusate Sodium (Colace) 100 mg PO BID [facility] Last Admin: 05/11/18 10:26 Dose: Not Given Hydromorphone HCl (Dilaudid) 2 mg IVP Q2H PRN PRN Reason: Pain, severe (8-10) Last Admin: 05/11/18 11:13 Dose: 2 mg Levothyroxine Sodium (Synthroid) 25 mcg PO DAILY@0630 [facility] Last Admin: 05/11/18 05:55 Dose: 25 mcg Ondansetron HCl (Zofran Inj) 4 mg IVP Q4H PRN PRN Reason: Anxiety Oxycodone HCl (Oxycodone Immediate Release Tab) 10 mg PO Q6 PRN PRN Reason: Pain, moderate (4-7) Last Admin: 05/11/18 00:40 Dose: 10 mg Pantoprazole Sodium (Protonix Inj) 40 mg IVP DAILY [facility] Last Admin: 05/11/18 10:21 Dose: 40 mg Polyethylene Glycol (Miralax) 17 gm PO HS PRN PRN Reason: Constipation Fluticasone/Salmeterol (Advair Diskus 250/50) 1 puff INH RQ12 [facility] Last Admin: 05/11/18 08:27 Dose: 1 puff - Labs Labs: 05/09/18 07:48 05/09/18 07:48 PT 17.0 SECONDS (9.7-12.2) H 05/05/18 16:35 INR 1.6 05/05/18 16:35 APTT 25 SECONDS (21-34) 05/05/18 16:35 - Constitutional Appears: Cachectic, Chronically Ill - Head Exam Head Exam: NORMOCEPHALIC - Eye Exam Eye Exam: EOMI Pupil Exam: PERRL Additional comments: pallor - ENT Exam ENT Exam: Mucous Membranes Moist - Respiratory Exam Respiratory Exam: Decreased Breath Sounds, NORMAL BREATHING PATTERN. absent: Accessory Muscle Use, Rales, Rhonchi, Wheezes, Respiratory Distress - Cardiovascular Exam Cardiovascular Exam: REGULAR RHYTHM, +S1, +S2 - GI/Abdominal Exam GI & Abdominal Exam: Soft. absent: Distended, Firm, Guarding, Rigid, Tenderness - Extremities Exam Extremities Exam: absent: Calf Tenderness, Pedal Edema - Neurological Exam Neurological Exam: Alert, Altered (confused). absent: Oriented x3 Additional comments: patient is confused. - Psychiatric Exam Psychiatric exam: absent: Normal Affect, Normal Mood - Skin Skin Exam: Pallor, Warm Assessment and Plan - Assessment and Plan (Free Text) Assessment: 72 years old female with metastatic lung cancer brought in for symptomatic anemia. Patient has mets to brain, liver and bones. s/p chemo and brain radiation treatment. Patient has been made DNR/DNI by due to rapidly deteriorating condition and very poor prognosis. Patient is no longer able to make her own decisions. Plan: Symptomatic anemia Upon admission, Hgb 7.7 on 05/05/18 * transfused 2 units of PRBC on 05/05/18 Hgb dropped to 6.8 on 05/09/18 * Transfuse 2 units of pRBC on 05/07/18 * Stool Occult Positive (05/07/18) * Dr. Rizo discussed declining condition of patient with - changed resuscitation status to DNR/DNI on 05/07/18. likely due to ca with mets continue to monitor Acute renal failure As per pt she has poor appetite and not able to drink Zofran 4mg IVP q4h prn LR @100mL/hr monitor creatinine Lung ca with mets Hem/Onc consulted, Dr. Rizo d/w Patient's oncologist, Dr. Rizo - no plan for further treatment Poor prognosis Patient refuses hospice care DNR/DNI Dexamethason 2mg IV daily Elevated LFTs Abdominal US - There are at least 2 heterogeneous masses in the mid liver likely representing metastatic disease. Recommend followup CT scan of the abdomen pelvis. Note that these findings were discussed with lines are 6: 51 p.m. with written down and read back verification Most likely 2/2 mets Anxiety and pain - comfort care Xanax 0.25mg PO TID prn Amitriptyline 150mg PO HS Dilaudid 2mg IVP q2h prn Oxycodone 10mg PO q6h prn Leukocytosis No signs of infection May be due to dexamethasone she was getting d/w oncologist we will not start on antibiotics now Prophylactic Care DVT - SCDs added GI - Protonix 40mg PO daily DISPO: Decision was made over the weekend with Dr. Eric and the patient's for comfort care and have the patient transferred to inpatient hospice. All blood tests have been stopped. Pain medications and oxygen as needed. All decisions are currently being made by the patient's due to the patient' s declining condition and inability to make her own decisions at this time. Case discussed with Dr. Anila Billyn PGY1 <Tal High - Last Filed: 05/11/18 15:51> Objective - Vital Signs/Intake and Output Vital Signs (last 24 hours): Temp Pulse Resp BP Pulse Ox 97.6 F 90 19 95/56 L 95 05/11/18 08:00 05/11/18 08:00 05/11/18 08:00 05/11/18 08:00 05/11/18 08:00 Intake and Output: 06/12/18 06/12/18 06:59 18:59 Intake Total 1715 840 Output Total 1 Balance 1714 840 - Medications Medications: Current Medications Albuterol/Ipratropium (Duoneb 3 Mg/0.5 Mg (3 Ml) Ud) 3 ml INH RQ6 PRN PRN Reason: Shortness of Breath Stop: 05/13/18 18:12 Alprazolam (Xanax) 0.25 mg PO TID PRN PRN Reason: Anxiety Stop: 05/12/18 19:11 Last Admin: 05/05/18 20:09 Dose: 0.25 mg Amitriptyline HCl (Elavil) 150 mg PO HS [facility] Last Admin: 05/10/18 21:44 Dose: Not Given Dexamethasone (Decadron Inj) 2 mg IV DAILY [facility] Last Admin: 05/11/18 10:21 Dose: 2 mg Docusate Sodium (Colace) 100 mg PO BID [facility] Last Admin: 05/11/18 10:26 Dose: Not Given Hydromorphone HCl (Dilaudid) 2 mg IVP Q2H PRN PRN Reason: Pain, severe (8-10) Last Admin: 05/11/18 11:13 Dose: 2 mg Levothyroxine Sodium (Synthroid) 25 mcg PO DAILY@0630 [facility] Last Admin: 05/11/18 05:55 Dose: 25 mcg Ondansetron HCl (Zofran Inj) 4 mg IVP Q4H PRN PRN Reason: Anxiety Oxycodone HCl (Oxycodone Immediate Release Tab) 10 mg PO Q6 PRN PRN Reason: Pain, moderate (4-7) Last Admin: 05/11/18 00:40 Dose: 10 mg Pantoprazole Sodium (Protonix Inj) 40 mg IVP DAILY [facility] Last Admin: 05/11/18 10:21 Dose: 40 mg Polyethylene Glycol (Miralax) 17 gm PO HS PRN PRN Reason: Constipation Fluticasone/Salmeterol (Advair Diskus 250/50) 1 puff INH RQ12 [facility] Last Admin: 05/11/18 08:27 Dose: 1 puff - Labs Labs: 05/09/18 07:48 05/09/18 07:48 PT 17.0 SECONDS (9.7-12.2) H 05/05/18 16:35 INR 1.6 05/05/18 16:35 APTT 25 SECONDS (21-34) 05/05/18 16:35 Attending/Attestation - Attestation I have personally seen and examined this patient.: Yes I have fully participated in the care of the patient.: Yes I have reviewed all pertinent clinical information, including history, physical exam and plan: Yes Notes (Text): 05/11/18 15:49 Medical attending: Patient was seen and examined by me as well. family member, her was at bedside. He was asking for papers to show that her situation was worsening. He had copies of the H&P but I asked the medical residents to print out a later progress note so that he may have it. Her condition is worsening slowly every day. She is awake - however like documentted above in the resident's note she is not able to cooperate or answer questions. She does have pain medications, per RNs it does seem to help keep her relaxed. Tal High
[2018-05-12] MEDS: HYDROmorphone 1 mg/ml ISec IVP PRN ×2 (04:21→09:44)
[2018-05-12] MEDS: Levothyroxine 25 MCG TAB PO SCH (05:56)
[2018-05-12] MEDS: Fluticasone-Salmeterol 250-50mcg Diskus INH SCH ×2 (07:24→19:29)
[2018-05-12] MEDS: Dexamethasone 4 mg/1 ml IV SCH (09:43)
[2018-05-12] MEDS ORDERED: HYDROmorphone 1 mg/ml ISec IVP PRN (11:26)
--- NOTE | 2018-05-12 14:33 | CP.PCM.PN ---
<López Snowden - Last Filed: 05/12/18 14:20> Subjective - Date & Time of Evaluation Date of Evaluation: 05/12/18 Time of Evaluation: 10:00 - Subjective Subjective: PGY1 Medicine Note for Dr. High Patient seen and examined this morning. Patient is more lethargic and not speaking at all today today. Patient has been deteriorating each day. ROS is unattainable. Objective - Vital Signs/Intake and Output Vital Signs (last 24 hours): Temp Pulse Resp BP Pulse Ox 97.3 F L 82 18 72/36 L 93 L 05/12/18 07:45 05/12/18 07:45 05/12/18 07:45 05/12/18 07:50 05/12/18 07:45 Intake and Output: 05/12/18 05/12/18 06:59 18:59 Intake Total 1600 Balance 1600 - Medications Medications: Current Medications Albuterol/Ipratropium (Duoneb 3 Mg/0.5 Mg (3 Ml) Ud) 3 ml INH RQ6 PRN PRN Reason: Shortness of Breath Stop: 05/13/18 18:12 Dexamethasone (Decadron Inj) 2 mg IV DAILY [facility] Last Admin: 05/12/18 09:43 Dose: 2 mg Hydromorphone HCl (Dilaudid) 2 mg IVP Q2H PRN PRN Reason: PAIN 1-10 Ondansetron HCl (Zofran Inj) 4 mg IVP Q4H PRN PRN Reason: Anxiety Pantoprazole Sodium (Protonix Inj) 40 mg IVP DAILY [facility] Last Admin: 05/12/18 09:44 Dose: 40 mg Fluticasone/Salmeterol (Advair Diskus 250/50) 1 puff INH RQ12 [facility] Last Admin: 05/12/18 07:24 Dose: Not Given - Labs Labs: 05/09/18 07:48 05/09/18 07:48 PT 17.0 SECONDS (9.7-12.2) H 05/05/18 16:35 INR 1.6 05/05/18 16:35 APTT 25 SECONDS (21-34) 05/05/18 16:35 - Constitutional Appears: Cachectic, Chronically Ill - Head Exam Head Exam: NORMOCEPHALIC - Eye Exam Eye Exam: PERRL Additional comments: pallor - ENT Exam ENT Exam: Mucous Membranes Moist - Respiratory Exam Respiratory Exam: Accessory Muscle Use. absent: Rales, Rhonchi, Wheezes, Respiratory Distress, NORMAL BREATHING PATTERN (start of agonal breathing pattern) - Cardiovascular Exam Cardiovascular Exam: REGULAR RHYTHM, +S1, +S2 - GI/Abdominal Exam GI & Abdominal Exam: Soft. absent: Distended, Firm, Guarding, Rigid, Tenderness - Extremities Exam Extremities Exam: absent: Calf Tenderness, Pedal Edema - Neurological Exam Neurological Exam: Altered, Awake Additional comments: patient is no longer alert or speaking. - Psychiatric Exam Psychiatric exam: Flat Affect - Skin Skin Exam: Dry, Warm Assessment and Plan - Assessment and Plan (Free Text) Assessment: 72 years old female with metastatic lung cancer brought in for symptomatic anemia. Patient has mets to brain, liver and bones. s/p chemo and brain radiation treatment. Patient has been made DNR/DNI by due to rapidly deteriorating condition and very poor prognosis. Patient is no longer able to make her own decisions. Plan: Symptomatic anemia Upon admission, Hgb 7.7 on 05/05/18 * transfused 2 units of PRBC on 05/05/18 Hgb dropped to 6.8 on 05/09/18 * Transfuse 2 units of pRBC on 05/07/18 * Stool Occult Positive (05/07/18) * Dr. Rizo discussed declining condition of patient with - changed resuscitation status to DNR/DNI on 05/07/18. likely due to ca with mets continue to monitor Acute renal failure As per pt she has poor appetite and not able to drink Zofran 4mg IVP q4h prn LR @100mL/hr monitor creatinine Lung ca with mets Hem/Onc consulted, Dr. Rizo d/w Patient's oncologist, Dr. Rizo - no plan for further treatment Poor prognosis Patient refuses hospice care DNR/DNI Dexamethason 2mg IV daily Elevated LFTs Abdominal US - There are at least 2 heterogeneous masses in the mid liver likely representing metastatic disease. Recommend followup CT scan of the abdomen pelvis. Note that these findings were discussed with lines are 6: 51 p.m. with written down and read back verification Most likely 2/2 mets Anxiety and pain - comfort care Xanax 0.25mg PO TID prn - discontinued all oral medications Amitriptyline 150mg PO HS - discontinued all oral medications Dilaudid 2mg IVP q2h prn Zofran 4mg IVP q4h prn Oxycodone 10mg PO q6h prn - discontinued all oral medications Leukocytosis No signs of infection May be due to dexamethasone she was getting d/w oncologist we will not start on antibiotics now Prophylactic Care DVT - SCDs added GI - Protonix 40mg PO daily - switched to IV DISPO: Decision was made over the weekend with Dr. Eric and the patient's for comfort care and have the patient transferred to inpatient hospice. All blood tests have been stopped. Pain medications and oxygen as needed. All decisions are currently being made by the patient's due to the patient' s declining condition and inability to make her own decisions at this time. Patient's condition is declining drastically each day. Her prognosis is dismal at this time. Comfort care measures only Case discussed with Dr. Anila Snowden PGY1 <Tal High H - Last Filed: 05/12/18 14:48> Objective - Vital Signs/Intake and Output Vital Signs (last 24 hours): Temp Pulse Resp BP Pulse Ox 97.3 F L 82 18 72/36 L 93 L 05/12/18 07:45 05/12/18 07:45 05/12/18 07:45 05/12/18 07:50 05/12/18 07:45 Intake and Output: 05/12/18 05/12/18 06:59 18:59 Intake Total 1600 Balance 1600 - Medications Medications: Current Medications Albuterol/Ipratropium (Duoneb 3 Mg/0.5 Mg (3 Ml) Ud) 3 ml INH RQ6 PRN PRN Reason: Shortness of Breath Stop: 05/13/18 18:12 Dexamethasone (Decadron Inj) 2 mg IV DAILY [facility] Last Admin: 05/12/18 09:43 Dose: 2 mg Hydromorphone HCl (Dilaudid) 2 mg IVP Q2H PRN PRN Reason: PAIN 1-10 Ondansetron HCl (Zofran Inj) 4 mg IVP Q4H PRN PRN Reason: Anxiety Pantoprazole Sodium (Protonix Inj) 40 mg IVP DAILY [facility] Last Admin: 05/12/18 09:44 Dose: 40 mg Fluticasone/Salmeterol (Advair Diskus 250/50) 1 puff INH RQ12 [facility] Last Admin: 05/12/18 07:24 Dose: Not Given - Labs Labs: 05/09/18 07:48 05/09/18 07:48 PT 17.0 SECONDS (9.7-12.2) H 05/05/18 16:35 INR 1.6 05/05/18 16:35 APTT 25 SECONDS (21-34) 05/05/18 16:35 Attending/Attestation - Attestation I have personally seen and examined this patient.: Yes I have fully participated in the care of the patient.: Yes I have reviewed all pertinent clinical information, including history, physical exam and plan: Yes Notes (Text): 05/12/18 14:47 Medical attending: Patient was seen and examined by me earlier in the day with the medical residents Later on nursing called explaining it appeared she was having agonal respirations. I expect patient to sometime relatively soon. Tal High
[2018-05-13] MEDS: Lactated Ringer's 1,000 ML IV SCH (02:30)
[2018-05-13 06:24] VITALS: PULSE 68; RESP 16; TEMP 97.4
[2018-05-13 08:18] VITALS: BP 57/32; O2SAT 89
--- NOTE | 2018-05-13 09:01 | CP.PCM.PRO ---
Pronouncement of Note - Clinical Findings Physical Exam: No Response Verbal/Painful Stimuli, Absent Peripheral Pulses{ Carotid & Femoral}, Absent Heart & Breath Sounds, No Pupillary Light Reflex, No Corneal Reflex, Pupils Fixed & Dilated, Absence of Vital Signs - Pronouncement Time Time of Pronouncement of : 08:50 - Notifications Pronouncement Notifications: Family Notified, Atending Notified [employer] Notified: No - Autopsy Autopsy Requested: No - [place] [id number]
--- NOTE | 2018-05-13 09:16 | CP.PCM.DIS ---
Provider - Provider Date of Admission: 05/05/18 18:07 Attending physician: Tal High DO Hospital Course - Lab Results Lab Results: Micro Results 05/05/18 17:54 Blood Blood Culture - Final Staphylococcus Sp Coag Neg 05/05/18 17:54 Blood Gram Stain - Final 05/05/18 17:55 Blood S.aureus & Coag-Neg Staph PNA FISH - Final 05/05/18 17:55 Blood Blood Culture - Final Coagulase Neg Staphylococcus 05/05/18 17:55 Blood Gram Stain - Final Most Recent Lab Values WBC 16.8 K/uL (4.8-10.8) H 05/09/18 07:48 RBC 2.18 Mil/uL (3.80-5.20) L 05/09/18 07:48 Hgb 6.8 g/dL (11.0-16.0) L 05/09/18 07:48 Hct 20.5 % (34.0-47.0) L 05/09/18 07:48 MCV 93.9 fL (81.0-99.0) 05/09/18 07:48 MCH 31.2 pg (27.0-31.0) H 05/09/18 07:48 MCHC 33.3 g/dL (33.0-37.0) 05/09/18 07:48 RDW 19.0 % (11.5-14.5) H 05/09/18 07:48 Plt Count 51 K/uL (130-400) L 05/09/18 07:48 MPV 10.2 fL (7.2-11.7) 05/09/18 07:48 Neut % (Auto) 91.9 % (50.0-75.0) H 05/08/18 16:19 Lymph % (Auto) 2.5 % (20.0-40.0) L 05/08/18 16:19 [place] % (Auto) 5.2 % (0.0-10.0) 05/08/18 16:19 Eos % (Auto) 0.1 % (0.0-4.0) 05/08/18 16:19 Baso % (Auto) 0.3 % (0.0-2.0) 05/08/18 16:19 Neut # (Auto) 14.4 K/uL (1.8-7.0) H 05/08/18 16:19 Lymph # (Auto) 0.4 K/uL (1.0-4.3) L 05/08/18 16:19 [place] # (Auto) 0.8 K/uL (0.0-0.8) 05/08/18 16:19 Eos # (Auto) 0.0 K/uL (0.0-0.7) 05/08/18 16:19 Baso # (Auto) 0.0 K/uL (0.0-0.2) 05/08/18 16:19 Neutrophils % (Manual) 88 % (50-75) H 05/08/18 16:19 Band Neutrophils % 9 % (0-2) H 05/08/18 16:19 Lymphocytes % (Manual) 3 % (20-40) L 05/08/18 16:19 Monocytes % (Manual) TEST NOT PERFORMED 05/08/18 16:19 Metamyelocytes % 1 % (0-0) H 05/07/18 06:36 Myelocytes % 2 % (0-0) H 05/06/18 04:00 Nucleated RBC % 1 % (0-0) H 05/06/18 04:00 Platelet Estimate Decreased (NORMAL) L 05/08/18 16:19 Large Platelets Present 05/06/18 04:00 Polychromasia Slight 05/08/18 16:19 Hypochromasia (manual) Slight 05/08/18 16:19 Poikilocytosis (manual Slight 05/06/18 04:00 Anisocytosis (manual) Slight 05/08/18 16:19 Ovalocytes Slight 05/06/18 04:00 PT 17.0 SECONDS (9.7-12.2) H 05/05/18 16:35 INR 1.6 05/05/18 16:35 APTT 25 SECONDS (21-34) 05/05/18 16:35 Sodium 144 mmol/L (132-148) 05/09/18 07:48 Potassium 4.1 mmol/L (3.6-5.2) 05/09/18 07:48 Chloride 105 mmol/L (98-107) 05/09/18 07:48 Carbon Dioxide 24 mmol/L (22-30) 05/09/18 07:48 Anion Gap 18 (10-20) 05/09/18 07:48 BUN 44 mg/dL (7-17) H 05/09/18 07:48 Creatinine 2.1 mg/dL (0.7-1.2) H 05/09/18 07:48 Est GFR ( Amer) 28 05/09/18 07:48 Est GFR (Non-Af Amer) 23 05/09/18 07:48 Random Glucose 127 mg/dL (65-105) H 05/09/18 07:48 Calcium 7.3 mg/dl (8.6-10.4) L 05/09/18 07:48 Total Bilirubin 1.9 mg/dL (0.2-1.3) H 05/08/18 16:19 AST 459 U/L (14-36) H 05/08/18 16:19 ALT 400 U/L (9-52) H D 05/08/18 16:19 Alkaline Phosphatase 557 U/L (38-126) H 05/08/18 16:19 Total Creatine Kinase 162 U/L (30-135) H 05/05/18 16:35 CK-MB (Mass) 9.59 ng/mL (0.0-3.38) H 05/05/18 16:35 Troponin I 0.0130 ng/mL (0.00-0.120) 05/05/18 16:35 Total Protein 4.8 g/dL (6.3-8.3) L 05/08/18 16:19 Albumin 2.5 g/dL (3.5-5.0) L 05/08/18 16:19 Globulin 2.3 gm/dL (2.2-3.9) 05/08/18 16:19 Albumin/Globulin Ratio 1.1 (1.0-2.1) 05/08/18 16:19 Stool Occult Blood Negative (NEGATIVE) 05/05/18 17:49 Blood Type O NEGATIVE 05/05/18 16:35 Antibody Screen Negative 05/05/18 16:35 Discharge Exam - Head Exam Head Exam: NORMOCEPHALIC Discharge Plan - Follow Up Plan Condition: STABLE Disposition: HOME/ ROUTINE
[2018-05-13] MEDS: Dexamethasone 4 mg/1 ml IV SCH (10:55)
[2018-05-13] MEDS: Fluticasone-Salmeterol 250-50mcg Diskus INH SCH (10:56)
== END 2018-05-13 08:50 | DRG 812 ==
LOC: C.ER 15:20 → C.9E 18:07 → C.3T 20:02
PROVIDERS: ADMIT Hospitalist; ATTEND Hospitalist
DX: D64.9 Anemia, unspecified (principal); C79.51 Secondary malignant neoplasm of bone; C79.31 Secondary malignant neoplasm of brain; C78.7 Secondary malignant neoplasm of liver and intrahepatic bile duct; C34.91 Malignant neoplasm of unspecified part of right bronchus or lung; R64 Cachexia; Z68.1 Body mass index [BMI] 19.9 or less, adult; D72.829 Elevated white blood cell count, unspecified; J43.9 Emphysema, unspecified; Z51.5 Encounter for palliative care; Z66 Do not resuscitate; Z74.01 Bed confinement status; Z87.891 Personal history of nicotine dependence